=== PATIENT | female | born 1945 | race African-American/Black ===

== ENCOUNTER → 2017-12-14 | Day surgery (SDC) | payer OTHER, MEDICARE ==
[2017-12-13 12:32] LABS: BASOPHILS # (AUTO) 0.1 (0.0-0.1); BASOPHILS % 0.9 % (0.0-1.0); EOSINOPHILS # (AUTO) 0.1 (0.0-0.4); EOSINOPHILS % 0.9 % (0.0-6.0); HEMATOCRIT 34.5 % (34.2-44.1); HEMOGLOBIN 11.2 g/dL (12.0-16.0); LYMPHOCYTES # (AUTO) 2.3 (1.0-3.2); LYMPHOCYTES % 39.8 % (18.0-39.1); MEAN CORPUSCULAR HGB CONC 32.5 g/dL (31-35); MEAN CORPUSCULAR VOLUME 92.5 fL (81-99); MONOCYTES # (AUTO) 0.5 (0.2-0.8); MONOCYTES % 7.8 % (4.4-11.3); NEUTROPHILS % 50.3 % (38.7-80.0); PLATELET COUNT 194 x10e3/uL (140-360); RED BLOOD COUNT 3.73 x10e6/uL (3.6-5.1); RED CELL DISTRIBUTION WIDTH 14.6 % (11.7-14.4)
[2017-12-13 12:54] LABS: ANION GAP 11.8 mmol/L (8-16); CALCIUM 9.6 mg/dL (8.4-10.2); CREATININE, SERUM 1.76 mg/dL (0.57-1.11); POTASSIUM 4.8 mmol/L (3.5-5.1)
[~2017-12-14] MED LIST: ALBUTEROL0.63 MG/3; ASPIR 8181 MG PO; ASPIRIN325 MG PO; ATORVASTATIN CA20 MG PO; BUPIVACAINE HCL 0.5% INJ 30 ML VIAL INJ ONE; BYSTOLIC10 MG PO; CARBAMAZEPINE200 MG PO; CATAPRES-TTS 21 EACH PO; CEFAZOLIN SOD 2 GM/D5W 50ML 50 ML IV ONE; DEXAMETHASONE SOD PHOS INJ 4 MG/ML VIAL ONE; DIAZEPAM5 MG PO; FENTANYL CITRATE/PF 100MCG/2 ML INJ ONE; FUROSEMIDE40 MG PO; GABAPENTIN400 MG PO; HYDRALAZINE HCL25 MG PO; HYDROCODON-ACE1 EA11 PO; ISOSORBIDE MONO20 MG PO; LIDOCAINE HCL 1% LOCAL INJ 20 ML VIAL ONE; LIDOCAINE HCL 2% LOCAL INJ 5 ML SDV VIAL INJ ONE; LIDODERM700 MG TOP; LINZESS PO; LISINOPRIL10 MG PO; LISINOPRIL2.5 MG PO; MIDAZOLAM HCL 2 MG/2 ML VIAL ONE; ONDANSETRON HCL INJ 2 MG/ML VIAL ONE; OXYCODONE HCL20 M1 PO; PANTOPRAZOLE SO40 MG PO; POTASSIUM CHLO10 ME1 PO; PROPOFOL IV EMULSION 10 MG/ML 20 ML VIAL ONE; SEVOFLURANE INHAL SOLN 250 ML PEN BTL ONE; SYMBICORT 16010.2 GM INH; ULTRAM 50MG50 MG PO; VENTOLIN HFA18 GM INH; VITAMIN D1000 UNI1 PO; VOLTAREN100 GM TOP; XANAX2 MG PO; ZOFRAN ODT4 MG SL
--- OUTSIDE RECORDS SUMMARY | 2017-12-14 05:20 | XMS REPORT ---
[facility] Address Unknown Phone Unavailable Care Team Providers Care Photographers' Model Name Role Phone CELE SHINE Unavailable Unavailable HERMILA JOHN Unavailable Unavailable Problems This patient has no known problems. Allergies, Adverse Reactions, Alerts This patient has no known allergies or adverse reactions. Medications This patient has no known medications. Results Test Description Test Time Test Comments Text Results Atomic Results Result Comments CT BRAIN WO [place] [id number] [place] [id number] Patient Name: MARIN CRABTREE MR #: [id number] : 1945 Age/Sex: 71/F Req #: [id number] [facility] Physician: Ordered by: CELE SHINE MD Report #: [id number] Location: ER Room/Bed: Procedure: [id number] CT/CT BRAIN WO Exam Date: Exam Time: REPORT STATUS: Signed EXAMINATION: Head CT without contrast. HISTORY: Headache, hypertension. COMPARISON:CT brain from 10/13/2016 and MRI brain from 10/14/2016. TECHNIQUE: Multidetector axial images were obtained from the foramen magnum to the vertex without contrast. The images were reconstructed using brain and bone algorithms. Thin section brain images were reformatted into coronal and sagittal planes. Intravenous contrast: None IMAGE QUALITY: Suboptimal evaluation due to motion artifacts. FINDINGS: Skull/scalp: No abnormality Parenchyma: Nonspecific few, scattered supratentorial white matter patchy hypodensity are likely related to small vessel ischemic changes. No acute hemorrhage, mass or acute major vascular territorial infarct. Arteries: Atherosclerotic calcification in bilateral carotid siphon. Dural sinuses: No abnormal density suggestive of thrombosis. Ventricles: No hydrocephalus or displacement. Extra- axial spaces: No abnormal density. Brain volume: Normal for age. Craniocervical junction: No mass, Chiari malformation, or basilar invagination. Sella: Enlarged, CSF filled empty sella. Paranasal/ mastoid sinuses: Imaged portions unremarkable. IMPRESSION: No acute intracranial abnormality. Mild supratentorial white matter microvascular ischemic changes. Signed by: Dr. Katie Nova M.D. on 07/06/2017 10:00 PM Dictated By: KATIE NOVA MD 99 Transcribed By: SEBASTIAN on 07/06/172199 COPY TO: CELE SHINE MD CHEST SINGLE (PORTABLE) [place] [address] Patient Name: MARIN CRABTREE MR #: [id number] : 1945 Age/Sex: 71/F Req #: [id number] Adm Physician: Ordered by: CELE SHINE MD Report #: [id number] Location: ER Room/Bed: Procedure: [id number] DX/CHEST SINGLE (PORTABLE) Exam Date: 07/06/17 Exam Time: 2126 REPORT STATUS: Signed CHEST SINGLE ( PORTABLE), 07/06/2017 9:18 PM Technique: CHEST SINGLE (PORTABLE) Comparison: 03/06/2017 Clinical history: Headache, hypertension Findings: See Impression Impression: 1. Stable cardiomegaly and prominent aortic contour status post sternotomy allowing for differences in technique. 2. No edema or consolidation. No pleural effusion or pneumothorax. Signed by: Dr Haritha Allen MD on 07/06/2017 10:22 PM Dictated By: HARITHA ALLEN MD 21 Transcribed By: SEBASTIAN on 07/06/172221 COPY TO: CELE SHINE MD CT ABDOMEN/PELVIS WO [place] [address] Patient Name: MARIN CRABTREE MR #: [id number] : 1945 Age/Sex: 71/F Req # : [id number] Adm Physician: Ordered by: MARTIN CASEY Report #: [id number] Location: ER Room/Bed: Procedure: [id number] CT/CT ABDOMEN/PELVIS WO Exam Date: 04/12/17 Exam Time: 1110 REPORT STATUS: Signed PROCEDURE: CT ABDOMEN AND PELVIS WITHOUT CONTRAST TECHNIQUE: The abdomen and pelvis were scanned utilizing a multidetector helical scanner from the diaphragm to the lesser trochanter. No oral or intravenous contrast was administered per renal stone protocol. Coronal and sagittal multiplanar reformations were obtained. COMPARISON: 03/06/2017. INDICATIONS: LEFT SIDE ABDOMEN PAIN FINDINGS: ABSENCE OF INTRAVENOUS CONTRAST DECREASES SENSITIVITY FOR DETECTION OF FOCAL LESIONS AND VASCULAR PATHOLOGY. LOWER THORAX: Normal. HEPATOBILIARY: No focal hepatic lesion or intrahepatic biliary ductal dilatation. The gallbladder has been removed. SPLEEN: No splenomegaly. PANCREAS: No focal masses or ductal dilatation. ADRENALS: Large left adrenal nodule with average internal attenuation -10 Hounsfield units, unchanged and compatible with lipid rich adenoma. Similar, though smaller right adrenal nodule. KIDNEYS/URETERS: Subcentimeter hyperattenuating lesions within both kidneys are too small to further characterize though likely to represent hemorrhagic or proteinaceous cysts for example on series 3 image 54 and 68. No hydronephrosis. No calculi. PELVIC ORGANS/BLADDER: No adnexal mass. The uterus has been removed. The urinary bladder is poorly distended and suboptimally evaluated. PERITONEUM / RETROPERITONEUM: No ascites. No pneumoperitoneum. LYMPH NODES: No pelvic sidewall, retroperitoneal , or mesenteric lymphadenopathy. VESSELS: Limited evaluation without intravenous contrast. The abdominal aorta is non-aneurysmal. Atherosclerotic calcification throughout the aortoiliac system. GI TRACT: Innumerable sigmoid and descending colon diverticula without wall thickening or adjacent inflammatory change. The appendix is not identified. No right lower quadrant inflammatory change. Prominence of the gastric rugal folds is likely a consequence of under distention. No small bowel dilatation to suggest obstruction. A few diverticula along the distal ileum without adjacent inflammatory change. BONES AND SOFT TISSUES: Postsurgical changes along the low anterior abdominal wall, unchanged. Otherwise, no focal soft tissue abnormalities. No acute osseous abnormalities. Degenerative disc disease and degenerative facet arthropathy of the lower lumbar spine IMPRESSION: No acute intra-abdominal or pelvic CT abnormalities. Large bowel diverticulosis without evidence of diverticulitis. Atherosclerotic vascular disease. Bilateral lipid rich adrenal adenomas. Dictated by: Brock Ramírez M.D. on 04/12/2017 at 12:10 Electronically approved by: Brock Ramírez M.D. on 04/12/2017 at 12:10 Dictated By: BROCK RAMÍREZ MD 1210 Transcribed By: MOMO on 04/12/17 1210 COPY TO: MARTIN CASEY
--- NOTE | 2017-12-14 08:08 | Operative Report ---
DATE OF PROCEDURE: December 14, 2017 PREOPERATIVE DIAGNOSIS: Right axillary mass. POSTOPERATIVE DIAGNOSIS: Right axillary mass. PROCEDURE: Excision of right axillary mass with layered closure. DESKTOP SUPPORT MANAGER: None. ANESTHESIA: General. INDICATIONS AND FINDINGS: Patient is a 72-year-old female who complains of a mass in the right axilla. Exam revealed probable mass that was about 8 cm in diameter and appeared to be accessory breast tissue. At surgery, the patient was found to have accessory breast tissue in the subcutaneous tissue, which was completely excised. TECHNIQUE: After adequate general endotracheal anesthesia and with the patient in the supine position, the right axilla was prepped and draped in a sterile fashion with Patricio solution. An elliptical incision made over the mass and carried into the subcutaneous tissue. The mass was completely excised from the surrounding tissues and extended into the axilla. It grossly appeared to be accessory breast tissue. Hemostasis achieved with electrocautery. The wound was irrigated with saline and inspected for hemostasis, which was seen to be adequate. A 10 mm flat Waylon-Ferrer drain was placed in the wound through a separate stab wound incision. The wound infiltrated with 0.5% Marcaine. The wound was then closed in layers with 3-0 Vicryl on the subcutaneous tissue and bharat for the skin. Sterile dressing was applied. The patient tolerated the procedure well. Estimated blood loss was 5 mL. There were no complications. All counts were correct. Patient was taken to the recovery room in satisfactory condition. Job#: [id number] SUSAN
== END | disposition home or self-care (01) ==
LOC: OR 05:19
PROVIDERS: ATTEND Surgery
DX: R22.31 Localized swelling, mass and lump, right upper limb (principal); N64.59 Other signs and symptoms in breast; Z88.5 Allergy status to narcotic agent; M41.9 Scoliosis, unspecified; K21.9 Gastro-esophageal reflux disease without esophagitis; J44.9 Chronic obstructive pulmonary disease, unspecified; I25.810 Atherosclerosis of coronary artery bypass graft(s) without angina pectoris; I13.0 Hypertensive heart and chronic kidney disease with heart failure and stage 1 through stage 4 chronic kidney disease, or unspecified chronic kidney disease; N18.9 Chronic kidney disease, unspecified; I50.9 Heart failure, unspecified; F17.210 Nicotine dependence, cigarettes, uncomplicated; Z01.812 Encounter for preprocedural laboratory examination; Z79.82 Long term (current) use of aspirin; Z95.1 Presence of aortocoronary bypass graft
CPT/HCPCS: 11404; 12032; 36415; 80048; 85025; 88305; J1100; J2001; J2250; J2405; 88304

== ENCOUNTER 2018-02-27 18:16 | Emergency (ER) | payer OTHER, MEDICARE ==
[~2018-02-27] VITALS: Ht 165.1 cm; Wt 84.8 kg
[~2018-02-27 18:16] MED LIST changes: -BUPIVACAINE HCL 0.5% INJ 30 ML VIAL INJ ONE; -CEFAZOLIN SOD 2 GM/D5W 50ML 50 ML IV ONE; -DEXAMETHASONE SOD PHOS INJ 4 MG/ML VIAL ONE; -FENTANYL CITRATE/PF 100MCG/2 ML INJ ONE; -LIDOCAINE HCL 1% LOCAL INJ 20 ML VIAL ONE; -LIDOCAINE HCL 2% LOCAL INJ 5 ML SDV VIAL INJ ONE; -MIDAZOLAM HCL 2 MG/2 ML VIAL ONE; -ONDANSETRON HCL INJ 2 MG/ML VIAL ONE; -PROPOFOL IV EMULSION 10 MG/ML 20 ML VIAL ONE; -SEVOFLURANE INHAL SOLN 250 ML PEN BTL ONE
[2018-02-27] MEDS ORDERED: DIATRIZOATE MEGL/DIATRIZOA SOD 30 ML BTL PO ONE (18:50)
[2018-02-27 19:02] LABS: BASOPHILS # (AUTO) 0.1 (0.0-0.1); BASOPHILS % 0.7 % (0.0-1.0); EOSINOPHILS # (AUTO) 0.1 (0.0-0.4); EOSINOPHILS % 1.1 % (0.0-6.0); HEMOGLOBIN 11.4 g/dL (12.0-16.0); LYMPHOCYTES # (AUTO) 3.1 (1.0-3.2); MEAN CORPUSCULAR HEMOGLOBIN 29.4 pg (28-32); MEAN CORPUSCULAR HGB CONC 32.6 g/dL (31-35); MEAN CORPUSCULAR VOLUME 90.2 fL (81-99); MONOCYTES # (AUTO) 0.4 (0.2-0.8); MONOCYTES % 5.9 % (4.4-11.3); NEUTROPHILS # (AUTO) 3.7 (2.1-6.9); NEUTROPHILS % 50.2 % (38.7-80.0); PLATELET COUNT 221 x10e3/uL (140-360); RED BLOOD COUNT 3.88 x10e6/uL (3.6-5.1); RED CELL DISTRIBUTION WIDTH 15.3 % (11.7-14.4)
[2018-02-27 19:06] LABS: CLARITY,URINE CLEAR (CLEAR); COLOR,URINE YELLOW (YELLOW)
[2018-02-27 19:07] LABS: KETONES,URINE NEGATIVE (NEGATIVE); LEUKOCYTE ESTERASE ,URINE NEGATIVE (NEGATIVE); NITRITE,URINE NEGATIVE (NEGATIVE); PROTEIN,URINE DIPSTICK NEGATIVE (NEGATIVE)
[2018-02-27 19:08] LABS: BILIRUBIN,URINE NEGATIVE (NEGATIVE); URINE UROBILINOGEN 0.2 mg/dL (0.2 - 1)
[2018-02-27 19:09] LABS: BACTERIA,URINE RARE /HPF; EPITHELIAL CELLS,URINE FEW /LPF; HYALINE CASTS 0-1 (0-1); RBC,URINE 0-5 /HPF (0-5); WBC,URINE (MAN) 0-5 /HPF (0-5)
[2018-02-27 19:10] LABS: INR 1.06
[2018-02-27 19:11] LABS: PARTIAL THROMBOPLASTIN TIME 29.9 seconds (23.8-35.5)
[2018-02-27 19:22] LABS: ALBUMIN 3.7 g/dL (3.5-5.0); ANION GAP 13.5 mmol/L (8-16); CALCIUM 9.6 mg/dL (8.4-10.2); CREATININE, SERUM 1.59 mg/dL (0.57-1.11); MAGNESIUM 1.8 MG/DL (1.3-2.1); POTASSIUM 3.5 mmol/L (3.5-5.1)
[2018-02-27 19:28] LABS: CREATINE KINASE MB 2.1 ng/mL (0-5.0)
--- NOTE | 2018-02-27 19:29 | Diagnostic Imaging Report ---
EXAM: CHEST SINGLE (PORTABLE), AP 1 view INDICATION: Abdominal pain, bloating COMPARISON: AP view of the chest July 06, 2017 FINDINGS: LINES/TUBES: None LUNGS: No consolidations or edema. PLEURA: No effusions or pneumothorax. HEART AND MEDIASTINUM: Normal size and contour. Stable median sternotomy wires. BONES AND SOFT TISSUES: No acute findings. IMPRESSION: No acute thoracic abnormality. Signed by: Dr. Eva Willson M.D. on 02/27/2018 7:26 PM
--- NOTE | 2018-02-27 20:52 | Diagnostic Imaging Report ---
EXAM: CT ABDOMEN AND PELVIS without IV CONTRAST INDICATION: Abdominal pain, bloating, shortness of breath COMPARISON: CT of the abdomen and pelvis March 06, 2017 TECHNIQUE: The abdomen and pelvis were scanned using a multidetector helical scanner. Coronal and sagittal reformations were obtained. Routine protocol performed. IV Contrast: None Oral Contrast: Gastrografin CTDIvol has been reviewed. It is below the limits set by the Radiation Protocol Committee (RPC). FINDINGS: LOWER THORAX: No consolidations LIVER: No masses BILIARY: Cholecystectomy without ductal dilation. SPLEEN: No masses PANCREAS: No masses ADRENALS: Stable 5 cm x 1.8 cm left adrenal gland adenoma. Stable mild thickening of the right adrenal gland. RIGHT KIDNEY: No nephroureterolithiasis or hydronephrosis. LEFT KIDNEY: No nephroureterolithiasis or hydronephrosis. GI TRACT: No wall thickening or obstruction. Sigmoid colon diverticulosis. The appendix is not identified. No inflammatory changes in the right lower quadrant of the abdomen to suspect acute appendicitis VESSELS: Mild atherosclerotic changes of the abdominal aorta without aneurysm. PERITONEUM/RETROPERITONEUM: No free air or fluid LYMPH NODES: No lymphadenopathy REPRODUCTIVE ORGANS: The uterus and ovaries are not visualized. BLADDER: Normal SOFT TISSUES: Normal BONES: No suspicious bone lesions. IMPRESSION: Marked sigmoid colon diverticulosis without CT findings of acute diverticulitis. No bowel obstruction. Signed by: Dr. Eva Willson M.D. on 02/27/2018 8:49 PM
[2018-02-27 21:37] VITALS: BP 165/117
== END 2018-02-27 21:45 | disposition home or self-care (01) ==
LOC: ER 18:16
DX: R10.84 Generalized abdominal pain (principal); R11.0 Nausea; K57.31 Diverticulosis of large intestine without perforation or abscess with bleeding; I10 Essential (primary) hypertension; E78.5 Hyperlipidemia, unspecified; I50.9 Heart failure, unspecified; G50.0 Trigeminal neuralgia; Z95.1 Presence of aortocoronary bypass graft
CPT/HCPCS: 36415; 71045; 74176; 80053; 81001; 82150; 82550; 82553; 83690; 83735; 83880; 84484; 85025; 85610; 85730; 93005; 99284

== ENCOUNTER → 2018-06-01 | Outpatient (CLI) | payer OTHER, MEDICARE ==
--- NOTE | 2018-06-01 12:44 | Diagnostic Imaging Report ---
EXAM: CT Chest WITHOUT contrast INDICATION: COPD/bronchitis COMPARISON: None. TECHNIQUE: The Chest was scanned utilizing a multidetector helical scanner without the use of IV contrast. Coronal and sagittal reformations were obtained. Reformatted axial MIP images were obtained and reviewed. IV CONTRAST: None COMPLICATIONS: None RADIATION DOSE: Total DLP: 258 mGy*cm Estimated effective dose: (DLP x 0.015 x size factor) mSv CTDIvol has been reviewed. It is below the limits set by the Radiation Protocol Committee (RPC). Appropriate CT dose reduction techniques were utilized. FINDINGS: Lines and Tubes: None. Lower Neck: 13 mm nodule left thyroid lobe. Heart and Great Vessels: The aorta and main pulmonary artery measure 42 and 33 mm. respectively. No pericardial effusion. Mild to moderate aortic and coronary artery vascular calcifications. Lymph Nodes: Scattered small mediastinal lymph nodes, not distinctly enlarged by size criteria. The hilar regions are sub-optimally evaluated given lack of IV contrast. Lungs: Mild biapical scarring. There is a diverticulum of the trachea posterior laterally on the right near the cervicothoracic junction. No pneumothorax or pleural effusion is present. The trachea and central bronchi are otherwise unremarkable. There is mild septal thickening in the lung bases. Atelectasis in the right middle lobe and lingula noted. Minimal groundglass opacities in the lung bases are present. There are a few tiny 1 to 2 mm pleural and parenchymal nodules, of doubtful clinical significance. Upper abdomen: Cholecystectomy clips. Left adrenal adenoma measuring 49 x 21 mm. Bones and Soft Tissues: Sternotomy wires. IMPRESSION: 1. Minimal septal thickening and groundglass opacities in the lung bases can be seen in the setting of minimal edema, with infectious or inflammatory processes not excluded. 2. Left adrenal adenoma. 3. Left thyroid nodule. Dedicated ultrasound recommended. 4. 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 Signed by: Dr. Yosvany Galaviz MD on 06/01/2018 12:40 PM
== END ==
LOC: CT 10:38
PROVIDERS: ATTEND Internal Medicine Critical Care Medicine
DX: R91.1 Solitary pulmonary nodule (principal)
CPT/HCPCS: 71250

== ENCOUNTER 2018-09-10 18:54 | Emergency (ER) | payer MEDICARE ==
[~2018-09-10] VITALS: Ht 165.1 cm; Wt 94.3 kg
[2018-09-10] MEDS ORDERED: CLONIDINE HCL 0.2 MG TAB PO ONE (20:00)
[2018-09-10] MEDS ORDERED: METHYLPREDNISOLONE SOD SUCC 125 MG/2ML VIAL IV ONE (20:00)
--- NOTE | 2018-09-10 20:19 | Diagnostic Imaging Report ---
Exams: Head and maxillofacial CTs without IV contrast History: Left facial pain, prior trigeminal neuralgia surgery, hypertension, EKG. Comparison studies: Head CT 07/06/2017. Technique: Axial images were obtained to the vertex and maxillofacial region. Coronal and sagittal images reconstructed from the axial data. Dose modulation, iterative reconstruction, and/or weight based adjustment of the mA/kV was utilized to reduce the radiation dose to as low as reasonably achievable. Intravenous contrast: None Findings: Scalp: No abnormalities. Bones: No fractures, blastic or lytic lesions. Brain sulci: Appropriate for age. Ventricles: Normal in size and configuration. No hydrocephalus. Parenchyma: No mass, acute hemorrhage or acute or chronic cortical vascular insults. A few scattered hypodensities in the supratentorial white matter are nonspecific but most compatible with chronic microvascular ischemic changes. Sellar/suprasellar region: Mildly expanded mostly CSF filled sella ("empty sella"), a nonspecific finding. Is mild optic nerve tortuosity as well as probably mild increased CSF within the optic nerve sheaths. Compilation of findings can be seen in patients with idiopathic intracranial hypertension in the proper clinical setting. Craniocervical junction: Patent foramen magnum. No Chiari one malformation. Maxillofacial CT: Soft tissues: No abnormalities. Bones: No fractures or bony abnormalities. Orbits: Mild vertical tortuosity of the optic nerves as well as possible mild increased CSF within the optic nerve sheath as described. No other abnormalities. Paranasal sinuses: Right sphenoid sinus is partially opacified with mucosal thickening and layering fluid/secretions. Remaining sinuses are clear. Included cervical spine: Cervical kyphotic curvature with varying degrees of mild to moderate disc degeneration from C2 to C6. Disc osteophyte complexes from C3 to C6 indent the thecal sac. Moderate foraminal stenosis bilaterally at C3-C4 C4-C5 and at C5-C6 due to uncovertebral arthrosis. Incidental findings: * Intracranial and extracranial bilateral carotid artery calcified atherosclerosis.. * Possible 1.6 cm hypodense nodule or cyst in the left thyroid gland. * Torus palatinus. * Degenerative changes at the right temporal mandibular joint with right mandibular condyle subcondylar cyst formation. IMPRESSION: Head CT: 1. No acute intracranial abnormalities. 2. Mild chronic microvascular ischemic changes. 3. Unchanged empty sella with additional ancillary findings which can be seen with idiopathic intracranial hypertension in the appropriate clinical setting. Moreover, this diagnosis would be somewhat unusual in a patient of this age. Findings can be correlated clinically. Maxillofacial CT: 1. Right sphenoid sinusitis. 2. No other acute intracranial abnormalities. Signed by: Dr. Ankush Dale M.D. on 09/10/2018 8:16 PM
[2018-09-10 20:27] LABS: BASOPHILS % 0.5 % (0.0-1.0); EOSINOPHILS # (AUTO) 0.1 (0.0-0.4); EOSINOPHILS % 0.9 % (0.0-6.0); HEMATOCRIT 36.5 % (34.2-44.1); HEMOGLOBIN 11.8 g/dL (12.0-16.0); LYMPHOCYTES # (AUTO) 1.8 (1.0-3.2); LYMPHOCYTES % 28.7 % (18.0-39.1); MEAN CORPUSCULAR HEMOGLOBIN 29.9 pg (28-32); MEAN CORPUSCULAR HGB CONC 32.3 g/dL (31-35); MEAN CORPUSCULAR VOLUME 92.4 fL (81-99); MONOCYTES # (AUTO) 0.4 (0.2-0.8); MONOCYTES % 5.8 % (4.4-11.3); NEUTROPHILS # (AUTO) 4.1 (2.1-6.9); NEUTROPHILS % 63.6 % (38.7-80.0); PLATELET COUNT 213 x10e3/uL (140-360); RED BLOOD COUNT 3.95 x10e6/uL (3.6-5.1); RED CELL DISTRIBUTION WIDTH 15.4 % (11.7-14.4)
[2018-09-10 20:46] LABS: ALBUMIN 3.6 g/dL (3.5-5.0); ALBUMIN/GLOBULIN RATIO 0.9 (0.8-2.0); ANION GAP 16.3 mmol/L (8-16); CALCIUM 9.2 mg/dL (8.4-10.2); CREATININE, SERUM 1.37 mg/dL (0.57-1.11); POTASSIUM 4.3 mmol/L (3.5-5.1)
[2018-09-10] MEDS ORDERED: HYDRALAZINE HCL 20 MG/ML VIAL IV PRN (21:45)
[2018-09-10] MEDS ORDERED: DIAZEPAM 5 MG TAB PO ONE (21:45)
[2018-09-10] MEDS ORDERED: HYDRALAZINE HCL 20 MG/ML VIAL IV STA (23:37)
[2018-09-11 00:29] VITALS: BP 163/72
== END 2018-09-11 00:56 | disposition home or self-care (01) ==
LOC: ER 18:54
DX: I10 Essential (primary) hypertension (principal); G50.0 Trigeminal neuralgia; J01.30 Acute sphenoidal sinusitis, unspecified; J44.9 Chronic obstructive pulmonary disease, unspecified; E78.5 Hyperlipidemia, unspecified; Z95.1 Presence of aortocoronary bypass graft
CPT/HCPCS: 36415; 70450; 70486; 80053; 85025; 99284; J0360; J2930

== ENCOUNTER 2018-09-16 10:27 | Emergency (ER) | payer MEDICARE ==
[~2018-09-16] VITALS: Ht 165.1 cm; Wt 94.3 kg
[2018-09-16] MEDS ORDERED: KETOROLAC TROMETHAMINE 30 MG/ML VIAL IV STA (10:43)
[2018-09-16] MEDS ORDERED: SODIUM CHLORIDE 0.9% 1000ML 1,000 ML IV STA (10:43)
[2018-09-16] MEDS ORDERED: DEXAMETHASONE SOD PHOS 10 MG/1 ML VIAL IV ONE (10:45)
[2018-09-16] MEDS ORDERED: BUPIVACAINE HC 0.75% PF 10ML VIAL INJ ONE ×2 (10:45→11:00)
[2018-09-16] MEDS ORDERED: HYDRALAZINE HCL 20 MG/ML VIAL IV ONE ×2 (10:45→14:00)
[2018-09-16 11:26] LABS: BASOPHILS % 0.6 % (0.0-1.0); EOSINOPHILS % 0.4 % (0.0-6.0); HEMATOCRIT 36.4 % (34.2-44.1); HEMOGLOBIN 11.9 g/dL (12.0-16.0); LYMPHOCYTES # (AUTO) 2.4 (1.0-3.2); LYMPHOCYTES % 33.4 % (18.0-39.1); MEAN CORPUSCULAR HEMOGLOBIN 30.3 pg (28-32); MEAN CORPUSCULAR HGB CONC 32.7 g/dL (31-35); MEAN CORPUSCULAR VOLUME 92.6 fL (81-99); MONOCYTES # (AUTO) 0.6 (0.2-0.8); MONOCYTES % 8.1 % (4.4-11.3); NEUTROPHILS # (AUTO) 4.1 (2.1-6.9); NEUTROPHILS % 57.1 % (38.7-80.0); PLATELET COUNT 215 x10e3/uL (140-360); RED BLOOD COUNT 3.93 x10e6/uL (3.6-5.1); RED CELL DISTRIBUTION WIDTH 14.9 % (11.7-14.4)
[2018-09-16] MEDS ORDERED: ENALAPRILAT IV INJ 1.25 MG/ML VIAL IV STA (11:44)
[2018-09-16 11:47] LABS: ANION GAP 11.7 mmol/L (8-16); CALCIUM 9.1 mg/dL (8.4-10.2); CREATININE, SERUM 1.3 mg/dL (0.57-1.11); POTASSIUM 3.7 mmol/L (3.5-5.1)
[2018-09-16] MEDS ORDERED: ENALAPRILAT IV INJ 1.25 MG/ML VIAL ONE (11:51)
[2018-09-16] MEDS ORDERED: CLONIDINE HCL 0.1 MG TAB PO ONE (12:30)
[2018-09-16] MEDS ORDERED: CLONIDINE HCL 0.3 MG TAB PO NR (12:45)
[2018-09-16] MEDS ORDERED: CLONIDINE HCL 0.3 MG TAB PO ONE (13:00)
[2018-09-16] MEDS ORDERED: MORPHINE SULFATE INJ 4 MG/ML INJ 1ML IV NR (13:00)
[2018-09-16] MEDS ORDERED: MORPHINE SULFATE 5 MG/ML VIAL IV ONE (13:00)
[2018-09-16 14:17] VITALS: BP 189/98
== END 2018-09-16 14:34 | disposition home or self-care (01) ==
LOC: ER 10:27
DX: G50.0 Trigeminal neuralgia (principal); I10 Essential (primary) hypertension; J44.9 Chronic obstructive pulmonary disease, unspecified; Z95.1 Presence of aortocoronary bypass graft
CPT/HCPCS: 36415; 80048; 85025; 93005; 99284; J0360; J1100; J1885; J2270; J7030

== ENCOUNTER 2019-05-01 15:05 | Emergency (ER) | payer OTHER, MEDICARE ==
[~2019-05-01] VITALS: Ht 165.1 cm; Wt 94.3 kg
[2019-05-01] MEDS ORDERED: SODIUM CHLORIDE 0.9% 1000ML 1,000 ML IV STA (15:06)
--- OUTSIDE RECORDS SUMMARY | 2019-05-01 15:07 | XMS REPORT | Continuity of Care Document ---
Author Author [facility] [employer] Organization [facility] [employer] Address Unknown Phone Unavailable Care Team Providers Care Entry Level Software Developer Name Role Phone [facility] [employer] Information valuescope Unavailable Unavailable Problems Problem Status Onset Date Classification Date Reported Comments Source DX: ROUTINE MAMMO, M81.0=AGE-RELATED OST Active 02/27/2019 [facility] R09.89 - OTH SYMPTOMS AND SIGNS INVOLVI Active 10/19/2018 [facility] Pain in left knee 03/25/2018 10/05/2018 [facility] M25.562 - PAIN IN LEFT KNEE Active 03/16/2018 [facility] Medications No Data Provided for This Section Allergies, Adverse Reactions, Alerts No Known Medication Allergies Immunizations No Data Provided for This Section Results No Data Provided for This Section Pathology Reports No Data Provided for This Section Diagnostic Reports Report Value Date Source Breast Mammo Scrn POLY incl CAD MA BILATERAL DIGITAL SCREENING MAMMOGRAM WITH CAD: 03/17/2019 CLINICAL: /Routine. Current study was evaluated with a Computer Aided Detection (CAD) system. COMPARISON:Comparison is made to exam dated: 06/29/2017 mammogram. TECHNIQUE: Mammographic views were obtained using digital acquisition. [employer] Version 1.3 was utilized for computer aided detection. FINDINGS: There are scattered fibroglandular densities in both breasts. There are benign calcifications in both breasts. No significant masses, calcifications, or other findings are seen in either breast. There has been no significant interval change. IMPRESSION: BENIGN RECOMMENDATION:There is no mammographic evidence of malignancy. A 1 year screening mammogram is recommended.(03/17/2020) This exam was interpreted at [id number] for [facility] Breast [place]. Fannie Magaña M.D. ap/penrad:03/30/2019 08:50:13 Information Strategist(s): Gracie Terrazas [facility] letter sent: BI-RADS 1/2 Mammogram BI-RADS: 2 Benign 03/17/2019 [facility] Thyroid US Exam: Thyroid US Clinical Indication: - left thyroid nodule. Comparison: None. TECHNIQUE: Multiplanar grayscale and color Doppler ultrasound of the neck were obtained in the area of the thyroid. FINDINGS: Thyroid parenchyma: Background thyroid parenchyma echogenicity appears within normal limits. Size: Right thyroid: 5.2 x 1.5 x 1.7 cm Left thyroid: 5.1 x 1.6 x 1.3 cm Isthmus thickness: 0.3 cm Thyroid nodules: There are 2 nodules identified as described below. Nodule 1: Location: Mid posterior right lobe Size: 1.0 x 1.0 x 1.0 cm Composition: Solid or almost completely solid (2 points). Echogenicity: Isoechoic (1 point). Shape: Wider than tall (0 points). Margins: Ill-defined (0 points). Echogenic foci: Absent (0 points). Other: None. ACR TI-RADS Score: TR3 - Mildly suspicious (total 3 points). -- ACR recommendation:=2.5 cm FNA;=1.5 cm f/u in 1, 3, and 5 years; <1.5 cm no f/u or FNA. Recommendations: None. Nodule 2: Location: Mid left lobe Size: 1.2 x 0.6 x 0.9 cm Composition: Mixed cystic and solid (1 point). Echogenicity: Hypoechoic (2 points). Shape: Wider than tall (0 points). Margins: Ill-defined (0 points). Echogenic foci: Absent (0 points). Other: None. ACR TI-RADS Score: TR3 - Mildly suspicious (total 3 points). -- ACR recommendation:=2.5 cm FNA;=1.5 cm f/u in 1, 3, and 5 years; <1.5 cm no f/u or FNA. Recommendations: None. Cervical lymph nodes: Normal. IMPRESSION: 1. Bilateral thyroid nodules, as detailed above, none of which meet MILTON criteria for FNA or follow-up. REFERENCE: Bokoshe BR et al. 2015 [place] Thyroid [employer] Management Guidelines for Adult Patients with Thyroid Nodules and Differentiated Thyroid Cancer. Thyroid. 2016; 26(1):1-133. SL: [id number] 03/17/2019 [facility] Bone Density Scan Patient Name: MARIN CRABTREE : 1945; Age: 73 years y/o Female MR: [id number] Study: Bone Density Scan 03/17/2019 8:59 CDT Clinical Indication: - M81.0 Age-related osteoporosis without current pathological fracture. COMPARISON: None FINDINGS: The axial lumbar bone mineral density is 138% of the expected age matched bone mass with a T-score 4.0. Axial lumbar average BMD is 1.59 g/cm2. The left femoral neck bone mineral density is 105% of the expected age matched bone mass with a T-score of 0.3. Left femoral neck BMD is 1.0 g/cm2. The total femoral BMD is 1.16 g/cm2. IMPRESSION: 1. Normal bone mineral density of the lumbar spine. 2. Normal bone mineral density of the left femoral neck. The World Health Organization has established that OSTEOPOROSIS occurs at -2.5 or more standard deviations (SD) below peak bone mass. OSTEOPENIA (low bone mass) occurs at -1.0 standard deviations to -2.5 standard deviations below peak bone mass. SL: [id number] 03/17/2019 [facility] Carotid artery Doppler bilat US EXAM: US EXTRACRANIAL ARTERIAL DOPPLER DATE: 10/25/2018 10:47 HUMAN RESOURCES RECRUITER INDICATION: - R09.89 Other specified symptoms and signs involving the circulatory and respiratory systems ADDITIONAL INFORMATION: None. COMPARISON: None. TECHNIQUE: Multiplanar grayscale, color Doppler and spectral Doppler ultrasound of the carotid and vertebral arteries. DISCUSSION: Right Carotid System: * Moderate hypoechoic atherosclerotic plaque is seen in the distal right common carotid artery and carotid bulb. * Peak systolic velocity in the right common carotid artery is 74cm/s. * Peak systolic velocity in the right internal carotid artery is 88cm/s in thedistal segment. * ICA/CCA ratio is 1.2. * Antegrade flow in the right vertebral and external carotid arteries. Left Carotid System: * Moderate hypoechoic atherosclerotic plaque is seen in the mid and distal segments of the left common carotid artery. * Peak systolic velocity left common carotid artery is 83cm/s. * Peak systolic velocity in the left internal carotid artery is 70cm/s in themid segment. * ICA/CCA ratio is 1.5. * Antegrade flow in the left vertebral and external carotid arteries. Other:Incidental 1.7 cm left inferior pole solid and cystic thyroid nodule. IMPRESSION: 1. No evidence of hemodynamically significant stenosis. Moderate hypoechoic or soft plaque seen in the bilateral distal common carotid arteries. 2. Vertebral arteries demonstrate antegrade flow with normal waveforms. 3. Incidental 1.7 cm left inferior pole solid and cystic thyroid nodule. Recommend further evaluation with dedicated thyroid ultrasound. According to the 2003 consensus criteria: <50% stenosis: PSV <125 cm/sec, EDV <40cm/sec, ICA:CCA ratio <2 50-69% stenosis: PSV 125-230cm/sec, EDV 40-100cm/sec, ICA:CCA ratio 2-4 >70% stenosis: PSV >230cm/sec, EDV >100cm/sec, ICA:CCA ratio >4 Reference: Radiology. 2003 229:340-346. Carotid Artery Stenosis: Wolf-scale and Doppler US diagnosis- Society of Radiologists in Ultrasound Consensus Conference. Evaristo EG, Orlando CB, Saundra GL, et. al. 10/25/2018 [facility] Knee 3 views DX CLINICAL HISTORY : , - lt knee pain EXAM : 3 views of the left knee 03/18/2018 10:51 AM CDT COMPARISON : none FINDINGS : Lucency lateral aspects of the lateral tibial plateau possibly due to a subacute nondisplaced fracture. There is no focal soft tissue swelling. There is no joint effusion. There is moderate tricompartmental degenerative changes including endplate sclerosis in the lateral tibial femoral compartment and marginal osteophytes, especially superior patellofemoral and lateral compartment. Subdermal calcifications or metallic shrapnel and surgical clips overlie the medial tibial plateau. Bone appears osteopenic. The bony alignment is normal. IMPRESSION: Possible acute to subacute nondisplaced fracture involving the lateral aspect of the lateral tibial plateau. 03/18/2018 [facility] Consultation Notes No Data Provided for This Section Discharge Summaries No Data Provided for This Section History and Physicals No Data Provided for This Section Vital Signs No Data Provided for This Section Encounters Location Location Details Encounter Type Encounter Number Reason For Visit Attending Provider ADM Date DC Date Status Source [facility] Outpatient Imaging [facility] Di[facility] Services [id number] Ankush Gallardo 03/18/2018 03/19/2018 [facility] Outpatient Imaging [facility] Diag Services [id number] Anksuh Gallardo 10/25/2018 10/26/2018 [facility] Outpatient [id number] Ankush Gallardo 03/17/2019 03/18/2019 [facility] Procedures No Data Provided for This Section Assessment and Plan No Data Provided for This Section Plan of Care No Data Provided for This Section Social History Social History Date Source No data available for this section 03/18/2019 [facility] No data available for this section 10/26/2018 [facility] No data available for this section 03/19/2018 [facility] Family History No Data Provided for This Section Advance Directives No Data Provided for This Section Functional Status No Data Provided for This Section
--- OUTSIDE RECORDS SUMMARY | 2019-05-01 15:07 | XMS REPORT | Summary of Care ---
Author Author [facility] Outpatient Imaging [facility] Outpatient [facility] Address Unknown Phone Unavailable Encounter HQ Encntr_aliamanda(FIN) [id number] Date(s): 10/25/18 - 10/25/18 [facility] Outpatient Imaging [facility] [address] [address], [address] [place], [place] [address] [phone] Discharge Disposition: Home or Self Care Attending Physician: Ankush Gallardo DO Referring Physician: Ankuhs Gallardo DO Vital Signs No data available for this section Problem List No data available for this section Allergies, Adverse Reactions, Alerts No data available for this section Medications No data available for this section Results No data available for this section Immunizations No data available for this section Procedures No data available for this section Social History No data available for this section Assessment and Plan No data available for this section
--- OUTSIDE RECORDS SUMMARY | 2019-05-01 15:07 | XMS REPORT | Summary of Care ---
Author Author SKY DERAS M.D. Organization Unknown Address [facility] Phone Unavailable Care Team Providers Care Winding Machine Operator Name Role Phone SKY DERAS M.D. 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 Chronic GERD (530.81, K21.9) Status: Active Nasal congestion (478.19, R09.81) Status: Active Medications Name Dates Details Fluticasone Propionate 50 MCG/ACT Nasal Suspension Active carBAMazepine 200 MG Oral Tablet * Refills: 0 Active Lisinopril TABS * Refills: 0 Active Pantoprazole Sodium 40 MG Oral Tablet Delayed Release * Refills: 0 Active diazePAM 10 MG Rectal Gel * Refills: 0 Active cloNIDine HCl TABS * Refills: 0 Active Aspirin 81 MG TABS * Refills: 0 Active Azithromycin 250 MG Oral Tablet * Refills: 0 Active Furosemide 40 MG Oral Tablet * Refills: 0 Active traMADol HCl TABS * Refills: 0 Active Dymista 137-50 MCG/ACT Nasal Suspension 2 sprays each nostril daily. * Quantity: 1 Refills: 6 SKY DERAS M.D. * Start : 28-Apr-2019 Active 23 GM Bottle Allergies and Adverse Reactions Name Dates Details codeine (Allergy) Status: Active Past Medical History Name Dates Details History of arthritis (V13.4, Z87.39) Status: Resolved History of cardiac disorder (V12.50, Z86.79) Status: Resolved History of chronic obstructive lung disease (V12.69, Z87.09) Status: Resolved History of gastritis (V12.79, Z87.19) Status: Resolved History of high blood pressure (V12.59, Z86.79) Status: Resolved History of kidney disease (V13.09, Z87.448) Status: Resolved Procedures Procedure Dates Details Procedures not documented Immunization Name Dates Details Immunizations not documented Family History Name Dates Details Family history of allergies (V19.6, Z84.89) Status: Active Family history of heart disease (V17.49, Z82.49) Status: Active Social History Name Dates Details - Status: Name Dates Details Never smoker Vital Signs Date Test Result Details 28-Apr-20199:50 BP Systolic 205 mm[Hg] Status: Comments: Location: LUE; Position: Sitting BP Diastolic 111 mm[Hg] Status: Comments: Location: LUE; Position: Sitting Heart Rate 60 /min Status: Results Date Description Value Details Results not documented Plan of Care Name Dates Details Planned Observations Planned Goals not documented Planned Encounters Appointment; SKY DERAS M.D. On: 30-May-2019 13:00 Interventions Provided Medication Changes* Dymista 137-50 MCG/ACT Nasal Suspension - Start Labs/Procedures/Imaging* Tobacco Use Screening; Done: 28 Apr 2019 Plan* 1. Will begin Dymista BID for the next 4 weeks with sinus rinse daily. Will begin dietary modifications and continue on the PPI. Fu in 4 weeks. Instructions Name Dates Details Instructions not documented Encounters Appointment; SKY DERAS M.D. Encounter Diagnosis: Problem not documented On: 28-Apr-2019 9:00
--- OUTSIDE RECORDS SUMMARY | 2019-05-01 15:07 | XMS REPORT | Summary of Care ---
Author Author [facility] Organization [facility] Address Unknown Phone Unavailable Encounter HQ Encntr_alias(FIN) [id number] Date(s): 03/17/19 - 03/17/19 [facility] [address] [place] [address]- [phone] Discharge Disposition: Home or Self Care Attending Physician: Ankush Gallardo DO Referring Physician: Ankush Gallardo DO Vital Signs No data available [...]
--- OUTSIDE RECORDS SUMMARY | 2019-05-01 15:07 | XMS REPORT | Summary of Care ---
Author Author [facility] [place] Organization [facility] [place] Address Unknown Phone Unavailable Encounter HQ Encntr_alias(FIN) [id number] Date(s): 03/18/18 - 03/18/18 [facility]patient [facility] - [place] [address] [place] [address]- [phone] Encounter Diagnosis Pain in left knee (Final) - 03/24/18 Discharge Disposition: Home or Self Care Attending [...]
[2019-05-01 16:33] LABS: BILIRUBIN,URINE NEGATIVE (NEGATIVE); CLARITY,URINE SL CLOUDY (CLEAR); COLOR,URINE YELLOW (YELLOW); KETONES,URINE NEGATIVE (NEGATIVE); LEUKOCYTE ESTERASE ,URINE NEGATIVE (NEGATIVE); NITRITE,URINE NEGATIVE (NEGATIVE); PROTEIN,URINE DIPSTICK NEGATIVE (NEGATIVE); URINE UROBILINOGEN 0.2 mg/dL (0.2 - 1)
--- NOTE | 2019-05-01 16:37 | Diagnostic Imaging Report ---
EXAMINATION: Head and cervical spine CT without contrast. HISTORY: Status post fall, head trauma, passed out COMPARISON: Head CT 09/10/2018 TECHNIQUE: Multidetector axial images were obtained without contrast from the foramen magnum to the vertex and through the cervical spine. The images were reconstructed using brain and bone algorithms. Thin section brain images were reformatted into coronal and sagittal planes. Dose modulation, iterative reconstruction, and/or weight based adjustment of the mA/kV was utilized to reduce the radiation dose to as low as reasonably achievable. HEAD CT FINDINGS: Skull/scalp: Occipitoparietal scalp swelling/hematoma without underlying fractures. Parenchyma: -Mild chronic microvascular ischemic changes. -Ill-defined hypodensity along the inferior aspect of the left head of the caudate nucleus may represent an age indeterminate area of ischemia, which was not clearly visualized on prior head CT. -No mass, hemorrhage or CT evidence of acute vascular insult. Brain volume: Normal for age. Ventricles: No hydrocephalus or displacement. Arteries: No density suggestive of thrombus. Dural sinuses: No abnormal density. Extra-axial spaces: No abnormal density. Foramen magnum: No mass, Chiari malformation, or basilar invagination. Sella: Enlarged, partially empty, unchanged from prior study Paranasal/mastoid sinuses: Imaged portions unremarkable. CERVICAL SPINE CT FINDINGS: Alignment:Reversal of the cervical lordosis centered at C3-C4. Minimal C2-C3 anterolisthesis. Soft tissues: Normal. Vertebrae: Normal height and density. No acute fracture, infection or neoplasm. Degenerative changes: C1-C2: Normal C2-C3: Normal C3-C4: Asymmetric right disc osteophyte complex measuring, bilateral uncovertebral necrosis. Severe right and moderate left foraminal stenoses. Mild spinal canal stenosis. C4-C5: Disc osteophyte compresses formation, bilateral uncovertebral and facet processes. Moderate spinal canal and severe bilateral foraminal stenosis worst on the right. C5-C6: Disc osteophyte compresses formation, bilateral uncovertebral arthrosis. Mild to moderate spinal canal stenosis. Severe bilateral foraminal stenosis worst on the left. C6-C7: Normal C7-T1: Normal IMPRESSION: Head CT: 1. No acute postraumatic intracranial hemorrhage. 2. Occipitoparietal scalp swelling/hematoma without underlying fractures. 3. Mild chronic microvascular ischemic changes. 4. New hypodensity in the left head of the caudate nucleus may represent age indeterminate area of ischemia. If there is clinical concern for acute vascular insult consider brain MRI for further evaluation. Cervical spine CT: 1. No acute fractures or dislocations. 2. Chronic degenerative changes as described. Note: Acute post traumatic spinal cord, vascular or ligamentous injury cannot adequately be assessed with CT. Signed by: Dr. Corinne Sargent M.D. on 05/01/2019 4:34 PM
--- NOTE | 2019-05-01 16:55 | Diagnostic Imaging Report ---
EXAMINATION: CHEST SINGLE (PORTABLE) INDICATION: Fall COMPARISON: Chest CT of 06/01/2018 FINDINGS: LINES/TUBES:None LUNGS:The lungs are well-inflated. No focal consolidation or pulmonary edema. PLEURA:No pleural effusion or pneumothorax. MEDIASTINUM:The cardiomediastinal silhouette appears normal in size and shape. BONES/SOFT TISSUES:No acute osseous injury. Sternotomy wires intact. ABDOMEN:No free air under the diaphragm. IMPRESSION: No focal pneumonia or pulmonary edema. Signed by: Cydney Negron MD on 05/01/2019 4:51 PM
[2019-05-01 16:58] LABS: BACTERIA,URINE MODERATE /HPF; EPITHELIAL CELLS,URINE MODERATE /LPF
== END 2019-05-01 20:00 | disposition left against medical advice (07) ==
LOC: ER 15:05
DX: R42 Dizziness and giddiness (principal)
CPT/HCPCS: 70450; 71045; 72125; 81001; 87086; 93005; 99281

== ENCOUNTER 2020-07-16 10:42 | Inpatient (IN) | payer MEDICARE ==
[2020-07-11 11:41] LABS: BASOPHILS # (AUTO) 0.1 (0.0-0.1); BASOPHILS % 0.8 % (0.0-1.0); EOSINOPHILS % 0.4 % (0.0-6.0); HEMATOCRIT 34.8 % (34.2-44.1); HEMOGLOBIN 11.2 g/dL (12.0-16.0); LYMPHOCYTES # (AUTO) 2.7 (1.0-3.2); LYMPHOCYTES % 27.2 % (18.0-39.1); MEAN CORPUSCULAR HEMOGLOBIN 32.3 pg (28-32); MEAN CORPUSCULAR HGB CONC 32.2 g/dL (31-35); MEAN CORPUSCULAR VOLUME 100.3 fL (81-99); MONOCYTES # (AUTO) 0.7 (0.2-0.8); MONOCYTES % 7.3 % (4.4-11.3); NEUTROPHILS # (AUTO) 6.4 (2.1-6.9); NEUTROPHILS % 63.9 % (38.7-80.0); PLATELET COUNT 210 x10e3/uL (140-360); RED BLOOD COUNT 3.47 x10e6/uL (3.6-5.1); RED CELL DISTRIBUTION WIDTH 14.2 % (11.7-14.4)
[2020-07-11 11:59] LABS: ALBUMIN 3.5 g/dL (3.5-5.0); ALBUMIN/GLOBULIN RATIO 0.9 (0.8-2.0); ANION GAP 14.5 mmol/L (8-16); CALCIUM 8.8 mg/dL (8.4-10.2); CREATININE, SERUM 1.69 mg/dL (0.57-1.11); POTASSIUM 4.5 mmol/L (3.5-5.1)
[2020-07-16] VITALS (21 sets, daily range): BP systolic 112–231; BP diastolic 53–104
[~2020-07-16] VITALS: Ht 165.1 cm; Wt 94.3 kg
[~2020-07-16 10:42] MED LIST changes: +ALBUTEROL0.63 MG/3 INH; +AMLODIPINE BESY10 MG PO; +ATORVASTATIN CA10 MG PO; +CETIRIZINE HCL10 MG PO; +CLOPIDOGREL75 MG PO; +HYDROCHLOROTHIA25 MG PO; +LINZESS290 MCG PO
--- NOTE | 2020-07-16 11:45 | NUR ---
pt in CCL 10 , prepped for procedure. Alert oriented and appropriate, PERRLA, respirations even and unlabored to room air. Pulses x4 extremities equal and palpable weak . Cap fill brisk < 3 sec. - modified barbeau and + neurovascular function of right wrist/hand. bilateral groin prepped for procedure. skin intact. Skin warm and dry integrity appears intact in general. IV 22g to left anterior forearm and presents healthy w/o s/s of infiltration or complaint. Abdomen soft and supple. pt offered toileting, denies need to urinate or defecate. Personal affects with patient. Family to be called post procedure . Pt verbalizes understanding of POC. Educated sales representative education courses light use. bed low and locked, side rails up x2 and call light at side. Awaiting for physician arrival/procedure time. pt using provided/ personal mask for COVID-19 mitigation. -cgf
--- NOTE | 2020-07-16 12:20 | NUR ---
Preop meds given.
[2020-07-16] MEDS ORDERED: ALPRAZOLAM 0.5 MG TAB ONE (12:34)
[2020-07-16] MEDS ORDERED: DIPHENHYDRAMINE HCL 25 MG CAP ONE ×2 (12:34→12:37)
[2020-07-16] MEDS ORDERED: MIDAZOLAM HCL 2 MG/2 ML VIAL ONE ×2 (12:54→13:43)
[2020-07-16] MEDS ORDERED: FENTANYL CITRATE/PF 100MCG/2 ML INJ ONE (12:55)
[2020-07-16] MEDS ORDERED: IOPAMIDOL 370 MG/ML 200 ML INFUS..BTL INJ ONE (12:55)
[2020-07-16] MEDS ORDERED: LIDOCAINE HCL 2% LOCAL 20 ML VIAL ONE (12:55)
[2020-07-16] MEDS ORDERED: SODIUM CHLORIDE 0.9% 1000ML 1,000 ML ONE (12:55)
[2020-07-16] MEDS ORDERED: HEPARIN SOD/SOD CHLORIDE 2,000 ML ONE (12:56)
[2020-07-16] MEDS ORDERED: BIVALRIUDIN 250 MG/VIAL VIAL IV ONE (13:56)
[2020-07-16] MEDS ORDERED: ADENOSINE 6MG/2ML 1 ML ONE (13:57)
[2020-07-16] MEDS ORDERED: SODIUM CHLORIDE 0.9% 50ML 0 ML ONE (13:57)
[2020-07-16] MEDS ORDERED: SODIUM CHLORIDE 0.9% 50ML 50 ML ONE ×2 (13:57→14:02)
[2020-07-16] MEDS ORDERED: ADENOSINE 3MG/1ML 30ML VIAL ONE (14:02)
--- NOTE | 2020-07-16 14:10 | NUR ---
bedside report received from Wendy Lang RN. Alert oriented and appropriate, PERRLA, respirations even and unlabored to room air. Pulses x4 extremities equal and palpable weak lower extremities. Right groin 6fr sheath stat-locked with caps. No s/s of hematoma or gross abnormality. Skin warm and dry integrity appears intact. IV 22g to left anterior forearm presents healthy w/o s/s of infiltration or complaint. Angiomax infusion @ 28.6 ml till complete. Abdomen soft and supple. pt offered toileting, denies need to urinate or defecate. No personal affects with patient. Family not available. Pt understanding of POC. Bedside telemetry/monitoring initiated. Currently w/o complaint of pain or need. baseline VS noted. Call light within reach, bed low and locked, side rails up x2. pt using provided/ personal mask for COVID-19 mitigation. -cgf
--- NOTE | 2020-07-16 14:25 | NUR ---
20mg labetalol given slow IVP. IV presents healthy. PO fluids and ice provided on request
[2020-07-16] MEDS ORDERED: LABETALOL HCL 20 ML ONE (14:33)
[2020-07-16] MEDS ORDERED: ASPIRIN 325 MG TAB ONE (14:34)
[2020-07-16] MEDS ORDERED: PRASUGREL 10 MG TAB ONE (14:34)
--- NOTE | 2020-07-16 14:45 | NUR ---
Neurologically intact. no deficits. HUA w/ strength and purpose. no gross deformities with facial expression, and continues to express needs appropriately with BP > 200 sbp. will continue to monitor for base line neuro deviations.
--- NOTE | 2020-07-16 15:10 | NUR ---
BP trend reviewed and RX effects shared with Dr. Ellis, orders received.
[2020-07-16] MEDS ORDERED: NITROGLYCERIN/D5W 200 MCG/ML 0 ML ONE (15:13)
--- NOTE | 2020-07-16 15:25 | NUR ---
medication retrieved from pharmacy. clarification RX orders with dr. tobias. RX order w/o alteration.
--- NOTE | 2020-07-16 15:40 | NUR ---
attempted establishment of second IV for medication administration. right AC 20g unable to thread. held pressure for 10 minutes due to anticoagulation. unable to locate suitable location for 2nd IV. will utilize 22g.
--- NOTE | 2020-07-16 15:50 | NUR ---
20mg Nicardipine bolus, secondary check with Sowmya Haley rn followed by 5mg nicardipine gtt to 22g.
[2020-07-16] MEDS ORDERED: NICARDIPINE HCL SOLN 10 ML ONE (15:59)
--- NOTE | 2020-07-16 16:10 | NUR ---
report called to ICU Melony of above events and facts. currently resting w/o distress or need. pt aware of NPO status till sheath DC. right groin with minimal oozing , no gross hematoma. BP in 110's post nicardipine gtt start. awaiting room ready.
--- OUTSIDE RECORDS SUMMARY | 2020-07-16 17:26 | XMS REPORT | Continuity of Care Document ---
Author Author [facility] t Organization [facility] t Address [address] [place] [address] Phone Unavailable Care Team Providers Care Glass Sander Name Role Phone BROCK GALLARDO DO PCP Doctor Unassigned, Name No Attphys Unavailable Kerline Tong Attphys Nicanor Culp MD, Brice [facility], - Clc Attphys Unavailable SKY DERAS M.D. Attphys Unavailable ALEX SCHMIDT Attphys Unavailable Carlos WEST Attphys Unavailable CONNER RONDON Attphys Unavailable Xiomy FISH Attphys Unavailable Marnie SHINE Attphys Unavailable Siena JOHN Attphys Unavailable Payers Payer Name Policy Type Policy Number Effective Date Expiration Date Carlos Perez Plus [id number] 2018 00:00:00 [facility] [id number] 2017 00:00:[address] [facility] [employer] Medicare Advantage [id number] 2018 00:00:00 [facility] Problems Condition Name Condition Details Condition Category Status Onset Date Resolution Date Last Treatment Date Treating Clinician Comments Source History of arthritis History of arthritis Problem Resolved [facility] History of high blood pressure History of high blood pressure Probl em Resolved [facility] History of chronic obstructive lung disease History of chronic obstructive lung disease Problem Resolved [facility] History of gastritis History of gastritis Problem Resolved [facility] History of kidney disease History of kidney disease Problem Resolved [facility] Dysphonia Dysphonia Problem Active [facility] Globus hystericus Globus hystericus Problem Active [facility] Chronic GERD Chronic GERD Problem Active [facility] Nasal congestion Nasal congestion Problem Active [facility] Back pain Back pain Problem Active [facility] Hypertension Hypertension Problem Active [facility] Hypertensive urgency Hypertensive urgency Problem Active [facility] Nausea and vomiting Nausea & vomiting Problem Active [facility] Left-sided trigeminal neuralgia Trigeminal neuralgia of left side of face Problem Active [facility] Renal insufficiency Renal insufficiency Problem Active [facility] Allergies, Adverse Reactions, Alerts Allergy Name Allergy Type Status Severity Reaction(s) Onset Date Inacti ve Date Treating Clinician Comments Source CODEINE DA Active SV 2017-11-05 00:00:00 [facility] Codeine Allergy to Substance Active itching 2017-01-10 00:00:00 [facility] codeine Allergy to drug (finding) Active [facility] Family History Family Member Diagnosis Comments Start Date Stop Date Source Mother Family history of allergies [facility] Mother Family history of heart disease [facility] Social History Smoking Status Start Date Stop Date Source [facility] smoked tobacco (finding[facility] Medications Ordered Medication Name Filled Medication Name Start Date Stop Da te Current Medication? Ordering Clinician Indication Dosage Frequency Signature (SIG) Comments Components Source Fluticasone Propionate 50 MCG/ACT Nasal Suspension Flu ticasone Propionate 50 MCG/ACT Nasal Suspension 2019-06-26 00:00:00 Yes MCKENZIE CEDILLO M.D. QD USE 2 SPRAYS IN EACH NOSTRIL DAILY [facility] Azelastine HCl - 0.15 % Nasal Solution Azelastine HCl - 0.15 % Nasal Solution 2019-06-26 00:00:00 Yes SKY DERAS M.D. USE 2 SPRAYS IN EACH NOSTRIL DAILY [facility] Fluticasone Propionate 50 MCG/ACT Nasal Suspension Flu ticasone Propionate 50 MCG/ACT Nasal Suspension 2019-05-24 00:00:00 Yes SKY DERAS M.D. QD INSTILL 2 SPRAY Daily both sides [facility] Azelastine HCl - 0.1 % Nasal Solution Azelastine HCl - 0.1 % Nasal Solution 2019-05-01 00:00:00 Yes SKY DERAS M.D. 2 Q0 .5D USE 2 SPRAYS IN EACH NOSTRIL TWICE DAILY. [facility] Dymista 137-50 MCG/ACT Nasal Suspension Dymista 137-50 MCG/A CT Nasal Suspension 2019-04-28 00:00:00 Yes SKY DERAS M.D. 2 sprays each nostril daily. [facility] Fluticasone Propionate 50 MCG/ACT Nasal Suspension Flu ticasone Propionate 50 MCG/ACT Nasal Suspension Yes [facility] carBAMazepine 200 MG Oral Tablet carBAMazepine 200 MG Oral Tablet Yes [facility] Lisinopril TABS Lisinopril TABS Yes [facility] Pantoprazole Sodium 40 MG Oral Tablet Delayed Release Pantoprazole Sodium 40 MG Oral Tablet Delayed Release Yes [facility] diazePAM 10 MG Rectal Gel diazePAM 10 MG Rectal Gel Yes [facility] cloNIDine HCl TABS cloNIDine HCl TABS Yes [facility] Aspirin 81 MG TABS Aspirin 81 MG TABS Yes [facility] Azithromycin 250 MG Oral Tablet Azithromycin 250 MG Oral Tablet Yes [facility] Furosemide 40 MG Oral Tablet Furosemide 40 MG Oral Tablet Yes [facility] traMADol HCl TABS traMADol HCl TABS Yes [facility] Albuterol Sulfate (Ventolin Hfa) 18 Gm Hfa.aer.ad Albu terol Sulfate (Ventolin Hfa) 18 Gm Hfa.aer.ad Yes 1 Twice A Day [facility] Aspirin (Aspir 81) 81 Mg Tablet. Aspirin (Aspir 81) 81 Mg Tablet.dr Tam 81 Daily [facility] Budesonide/Formoterol Fumarate (Symbicor t 160-4.5 Mcg Inhaler) 10.2 Gm Hfa.aer.ad Budesonide/Formoterol Fumarate (Symbicor t 160-4.5 Mcg Inhaler) 10.2 Gm Hfa.aer.ad Yes 1 Twice A Day [facility] Carbamazepine 200 Mg Tablet Carbamazepine 200 Mg Tablet Yes 200 Daily [facility] Cholecalciferol (Vitamin D3) (Vitamin D) 1,000 Unit [place] Cholecalciferol (Vitamin D3) (Vitamin D) 1,000 Unit Tablet Yes 5000 Daily [facility] Clonidine (Catapres-Tts 2) 1 Each Patch.tdwk Clonidine (Catapres-Tts 2) 1 Each Patch.tdwk Yes 1 Week [facility] Diazepam 5 Mg Tablet Diazepam 5 Mg Tablet Yes 10 Daily [facility] Furosemide 40 Mg Tablet Furosemide 40 Mg Tablet Yes 40 Daily [facility] Gabapentin 400 Mg Capsule Gabapentin 400 Mg Capsule Yes 400 Three Times A Day [facility] Hydralazine Hcl 25 Mg Tab Hydralazine Hcl 25 Mg Tab Yes 100 Every 8 Hours [facility] Hydrocodone Bit/Acetaminophen (Hydrocodon-Acetaminophe n 5-325) 1 Each Tablet Hydrocodone Bit/Acetaminophen (Hydrocodon-Acetaminophen 5-325) 1 Each Tablet Yes 1 As Needed as needed for Pain [facility] Linzess Linzess Yes 290 Daily [facility] Lisinopril 10 Mg Tablet Lisinopril 10 Mg Tablet Yes 20 Daily [facility] Pantoprazole Sodium (Protonix) 40 Mg Tablet. Pantopr azole Sodium (Protonix) 40 Mg Tablet. Yes 40 Daily [facility] Tramadol Hcl (Ultram 50MG*) 50 Mg Tab, 50 Mg Oral Tram adol Hcl (Ultram 50MG*) 50 Mg Tab, 50 Mg Oral 2017-12-14 00:00:00 No 50 As Ne eded [facility] Albuterol Sulfate 0.63 Mg/3 Ml Vial.bharat, Albuterol Sul fate 0.63 Mg/3 Ml Vial.bharat, 2017-12-13 00:00:00 No [facility] Ondansetron (Zofran Odt) 4 Mg Tab.rapdis, 8 Mg Subling ual Ondansetron (Zofran Odt) 4 Mg Tab.rapdis, 8 Mg Sublingual 2017-12-13 00:00:00 No 8 Every 6 Hours as needed for Nausea [facility] Alprazolam (Xanax) 2 Mg Tablet, 1 Mg Oral Alprazolam ( Xanax) 2 Mg Tablet, 1 Mg Oral 2017-01-10 00:00:00 No 1 as needed for Anxi ety [facility] Atorvastatin Calcium 20 Mg Tablet, 40 Mg Oral Atorvast atin Calcium 20 Mg Tablet, 40 Mg Oral 2017-01-10 00:00:00 No 40 Daily [facility] Diclofenac Sodium (Voltaren) 100 Gm Gel..gram., 1 % To pically Diclofenac Sodium (Voltaren) 100 Gm Gel..gram., 1 % Topically 2017-01-10 00:00:00 No 1 Daily [facility] Isosorbide Mononitrate 20 Mg Tablet, 60 Mg Oral Isosor bide Mononitrate 20 Mg Tablet, 60 Mg Oral 2017-01-10 00:00:00 No 60 Daily [facility] Lidocaine (Lidoderm) 700 Mg Adh..patch, 5 % Topically Lidocaine (Lidoderm) 700 Mg Adh..patch, 5 % Topically 2017-01-10 00:00:00 No 5 Daily [facility] Linzess , 298 Mg Oral Linzess , 298 Mg Oral 2017-01-10 00:00:00 No 298 Daily [facility] Nebivolol Hcl (Bystolic) 10 Mg Tablet, 10 Mg Oral Nebi volol Hcl (Bystolic) 10 Mg Tablet, 10 Mg Oral 2017-01-10 00:00:00 No 10 Daily [facility] Oxycodone Hcl 20 Mg Tablet, 80 Mg Oral Oxycodone Hcl 20 Mg Table t, 80 Mg Oral 2017-01-10 00:00:00 No 80 Four Times Daily [facility] Pantoprazole Sodium (Protonix) 40 Mg Tablet., 40 Mg Oral Pantoprazole Sodium (Protonix) 40 Mg Tablet., 40 Mg Oral 2017-01-10 00:00:00 No 40 Daily [facility] Aspirin 325 Mg Tablet, 325 Mg Oral Aspirin 325 Mg Tablet, 325 Mg Oral 2016-10-17 00:00:00 No 325 Daily [facility] Lisinopril 2.5 Mg Tablet, 5 Mg Oral Lisinopril 2.5 Mg Tablet, 5 Mg Oral 2016-10-17 00:00:00 No 5 Daily [facility] Potassium Chloride 10 Meq Tab.er.prt, 10 Meq Oral Pota ssium Chloride 10 Meq Tab.er.prt, 10 Meq Oral 2016-10-17 00:00:00 No 10 Daily [facility] Vital Signs Vital Name Observation Time Observation Value Comments Source Height 2019-06-26 13:25:00 65 [in_us] [facility] Weight 2019-06-26 13:25:00 187.1875 [lb_av] [facility] Body Mass Index Calculated 2019-06-26 13:25:00 31.15 kg/m2 [facility] BP Systolic 2019-04-28 09:50:00 205 mm[Hg] Location: LUE; Positi on: Sitting [facility] BP Diastolic 2019-04-28 09:50:00 111 mm[Hg] Location: LUE; Positi on: Sitting [facility] Heart Rate 2019-04-28 09:50:00 60 /min [facility] Procedures Procedure Date / Time Performed Performing Clinician Isaiah e Computed tomography of brain without radiopaque contrast 201 05-01-09 00:00:00 [place] [facility] Computed tomography of cervical spine without contrast 05-01 00:00:00 [place] [facility] Computed tomography of brain without radiopaque contrast 201 04-23-19 00:00:00 SKY ABREU [facility] CT maxillofacial area wo contrast 2018-09-10 00:00:00 SKY ABREU [facility] Encounters Start Date/Time End Date/Time Encounter Type Admission Type Attendi [facility] Care Department Encounter ID Source 2020-07-11 00:00:00 2020-07-11 00:00:00 Orders Only D octor Unassigned, [place] [facility] [id number] 2020-07-05 11:25:00 2020-07-05 23:59:00 Hospital Encounter Farheen Andrekirstenrossy [facility] ([facility]) [id number] 2020-07-05 09:23:25 2020-07-05 11:24:00 Hospital Encounter Brice Hodgson [facility] ([facility]) [id number] 2020-07-05 00:00:00 2020-07-05 00:00:00 Orders Only D octor Unassigned, [place] [facility] [id number] 2020-07-03 11:16:53 2020-07-03 11:31:53 Administrative Underwriter Visit Mikayla mcmanus [facility] ([facility]) [id number] 2019-06-26 13:30:00 2019-06-26 13:30:00 Appointment; SKY DERAS M.D. BYRD, MICHAEL, M.D. [facility] Otorhinolaryngology - [facility] [id number] [facility] 2019-05-02 14:40:00 2019-05-02 14:40:00 Outpatient E [id number] 2019-05-01 15:05:00 2019-05-01 20:00:00 Departed Emergency Room 1 ALEX SCHMIDT [facility] [id number] [facility] 2019-04-28 09:00:00 2019-04-28 09:00:00 Appointment; SKY DERAS M.D. SKY DERAS M.D. [facility] Otorhinolaryngology [place] [id number] [address] [place] [address] Physicians 2019-03-17 08:27:00 2019-03-17 08:27:00 Outpatient [id number] 2018-09-16 10:27:00 2018-09-16 14:34:00 Departed Emergency Room [facility] [id number] [facility] Patients [facility] 2018-09-10 18:54:00 2018-09-11 00:56:00 Departed Emergency Room 1 CARA WEST [facility] [id number] [facility] 2018-06-01 10:38:00 2018-06-01 10:38:00 Registered Clinic 3 CONNER WELSH [facility] [id number] [facility] 2018-02-27 18:16:00 2018-02-27 21:45:00 Departed Emergency Room 1 RENATE FISH [facility] [id number] [facility]. [facility] 2017-12-14 05:19:00 2017-12-14 05:19:00 Registered Surgical Day Care [facility] [id number] [facility]. [facility] 2017-07-06 20:37:00 2017-07-06 23:56:00 Departed Emergency Room ER CELE SHINE [facility] [id number] [facility] 2017-06-02 08:37:00 2017-06-02 08:37:00 Registered Surgical Day Care [facility] [id number] [facility] Patients [facility] Results Test Description Test Time Test Comments Results Result Comments Source BASIC METABOLIC PANEL 2019-06-13 14:12:00 Test Item SODIUM (test code = NA) 139 mmol/L 136-145 N POTASSIUM (test code = K) 4.3 mmol/L 3.5-5.1 N CHLORIDE (test code = CL) 106.0 mmol/L 98-107 N CARBON DIOXIDE (test code = CO2) 25.0 mmol/L 21-32 N ANION GAP (test code = GAP) 12.3 10-20 N GLUCOSE (test code = GLU) 71 mg/dL 74-106 L BLOOD UREA NITROGEN (test code = BUN) 33 mg/dL 7-18 H GLOMERULAR FILTRATION RATE (test code = GFR) 38 mL/min >=60 Estimated GFR by using Modified MDRD formula.Chronic kidney disease is defined as either kidney damageor GFR <60 mL/min/1.73 m2 for >3 months. CREATININE (test code = CREAT) 1.60 mg/dL 0.55-1.02 H Note change in reference range due to change in reagent. BUN/CREATININE RATIO (test code = BUN/CREA) 20.6 10-20 H CALCIUM (test code = CA) 8.8 mg/dL 8.5-10.1 N BASIC METABOLIC [id number] 14:05:00* Test Item Value Reference Range Interpretation Comments SODIUM (test code = NA) 139 mmol/L 136-145 N POTASSIUM (test code = K) 4.3 mmol/L 3.5-5.1 N CHLORIDE (test code = CL) 106.0 mmol/L 98-107 N CARBON DIOXIDE (test code = CO2) mmol/L 21-32 ANION GAP (test code = GAP) 10-20 GLUCOSE (test code = GLU) mg/dL 74-106 BLOOD UREA NITROGEN (test code = BUN) mg/dL 7-18 GLOMERULAR FILTRATION RATE (test code = GFR) mL/min >=60 CREATININE (test code = CREAT) mg/dL 0.55-1.02 BUN/CREATININE RATIO (test code = BUN/CREA) 10-20 CALCIUM (test code = CA) 8.8 mg/dL 8.5-10.1 N PROTHROMBIN [id number] 13:41:00* Test Item Value Reference Range Interpretation Comments PROTHROMBIN TIME PATIENT (test code = PTP) 11.8 seconds 9.0-14.0 N INTERNATIONAL NORMAL RATIO (test code = INR) 1.0 0.8-1.2 N The therapeutic range for oral anticoagulant therapy formost indications is an international normalized ratio (INR)of between 2.0 and 3.0. The recommended therapeutic INRrange for various clinical situations is listed below: Clinical Situation INR range Pulmonary e mbolism treatment (2.0-3.0)Venous thrombosis treatmentVenous thrombosis prophylaxis (high risk surgery)Prevention of systemic embolism from: Acute myocardial infarction Valvular heart disease Atrial fibrillation Mechanical prosthetic heart valves (2.5-3.5) THROMBOPLASTIN TIME [id number] 13:41:00* Test Item Value Reference Range Interpretation Comments THROMBOPLASTIN TIME PARTIAL (test code = PTT) 33.7 seconds 25.0-36. 5 N - XR CHEST 2 [id number] 13:27:00 FAX: Brock Salgado MD [phone] [place]: O St: PRE FAX: Brock Naik [phone] Name: MARIN CRABTREE [facility] : 1945 Age/S: 73/F [address] [facility] Unit #: [id number] Loc: SHANNON SARAH Gutierrez [address] Phys: Brock Rondon MD Acct: [id number] Dis Date: Status: PRE [facility] PHONE #: [phone] Exam Date: 06/13/2019 1256 FAX #: [phone] Reason: PRE-OP EXAMS: CPT CODE: [id number] XR CHEST 2 V 63027 HISTORY: Preop. COMPARISON: November 05, 2017. AP and lateral view of the chest: No acute infiltrates, effusion or congestion. Cardiac silhouette is mildly enlarged. Patient is post median sternotomy. IMPRESSION: No acute infiltrates, effusion or congestion. at 1327 Reported and signed by: Lamont Paige M.D. CC: Brock Rondon; Brock Gallardo Technologist: RT Mckay(Rashida) Trnscrd Date/Time/By: 06/13/2019 (2345) : By: [email or web address] Orig Print D/T: S: 06/13/2019 (3614) PAGE 1 Signed Report Urine [id number] 16:58:00* Test Item Value Reference Range Interpretation Comments Urine WBC (test code = 5821-4) NONE 0-5 [facility] [id number] 16:58:00* Test Item Value Reference Range Interpretation Comments Urine RBC (test code = 66925-7) NONE 0-5 [facility] [id number] 16:58:00* Test Item Value Reference Range Interpretation Comments Urine Bacteria (test code = 54873-1) MODERATE NONE [facility] Epithelial [id number] 16:58:00 * Test Item Value Reference Range Interpretation Comments Urine Epithelial Cells (test code = 04334-1) MODERATE NONE [facility]2019-05-01 16:49:00 [facility] [address] [place] [address] Patient Name: MARIN CRABTREE MR #: [id number] : 1945 Age/Sex: 73/F Req #: [id number] Adm Physician: Ordered by: ROXANA BRUNNER, ALEX BRUNNER Report #: [id number] Location: ER Room/Bed: Procedure: [id number] DX /CHEST SINGLE (PORTABLE) Exam Date: 05/01/19 Exam Ti me: 1610 REPORT STATUS: Signed E XAMINATION: CHEST SINGLE (PORTABLE) INDICATION: Fall COMPARISON: Chest CT of 06/01/2018 FINDINGS: LINES/TUBES:None LUNGS:The lungs are well-inflated. No focal consolidation or pulmonary edema. PLEURA: No pleural effusion or pneumothorax. MEDIASTINUM:The cardiomediastinal silh ouette appears normal in size and shape. BONES/SOFT TISSUES:No acute osseou s injury. Sternotomy wires intact. ABDOMEN:No free air under the diaphragm. IMPRESSION: No focal pneumonia or pulmonary edema. Signed by: Jyoti Cervantes MD on 05/01/2019 4:51 PM Dictated By: JUSTEN CERVANTES MD Electronica lly Signed By: JUSTEN CERVANTES MD on 05/01/191650 Transcribed By: SEBASTIAN on 1650 COPY TO: ALEX SCHMIDT Urine [id number] 16:34:00* Test Item Value Reference Range Interpretation Comments Urine Color (test code = 5778-6) YELLOW YELLOW [facility] [id number] 16:34:00* Test Item Value Reference Range Interpretation Comments Urine Clarity (test code = 69384-5) SL CLOUDY CLEAR [facility] Specific [id number] 16:34:00 * Test Item Value Reference Range Interpretation Comments Urine Specific [place] (test code = 5811-5) 1.010 1.010-1.02 5 [facility] [id number] 16:34:00* Test Item Value Reference Range Interpretation Comments Urine pH (test code = 51866-6) 6 5-7 [facility] Leukocyte [id number] 16:34:00* Test Item Value Reference Range Interpretation Comments Urine Leukocyte Esterase (test code = 02283-9) NEGATIVE NEGATIV E [facility] [id number] 16:34:00* Test Item Value Reference Range Interpretation Comments Urine Nitrite (test code = 60184-7) NEGATIVE NEGATIVE [facility] [id number] 16:34:00* Test Item Value Reference Range Interpretation Comments Urine Protein (test code = 46008-6) NEGATIVE NEGATIVE [facility] Glucose (UA)2019-05-01 16:34:00* Test Item Value Reference Range Interpretation Comments Urine Glucose (UA) (test code = 70847-3) NEGATIVE NEGATIVE [facility] [id number] 16:34:00* Test Item Value Reference Range Interpretation Comments Urine Ketones (test code = 37033-5) NEGATIVE NEGATIVE [facility] [id number] 16:34:00* Test Item Value Reference Range Interpretation Comments Urine Urobilinogen (test code = 97552-3) 0.2 0.2-1 [facility] [id number] 16:34:00* Test Item Value Reference Range Interpretation Comments Urine Bilirubin (test code = 1977-8) NEGATIVE NEGATIVE [facility] [id number] 16:34:00* Test Item Value Reference Range Interpretation Comments Urine Blood (test code = 78781-5) NEGATIVE NEGATIVE [facility] [id number] 16:21:00 [facility] [address] [place] [address] Patient Name: MARIN CRABTREE MR #: [id number] : 1945 Age/Sex: 73/F Req #: [id number] Adm Physician: Ordered by: ROXANA BRUNNER, ALEX BRUNNER Report #: [id number] Location: ER Room/Bed: Procedure: [id number] CT /CT CERVICAL SPINE WO Exam Date: 05/01/19 Exam Time: 1605 REPORT STATUS: Signed EXAM INATION: Head and cervical spine CT without contrast. HISTORY: Status pos t fall, head trauma, passed out COMPARISON: Head CT 09/10/2018 TECHNIQUE: Mul tidetector axial images were obtained without contrast from the foramen magnum to the vertex and through the cervical spine. The images were reconstructed u sing brain and bone algorithms. Thin section brain images were reformatted in to coronal and sagittal planes. Dose modulation, iterative reconstruction, and /or weight based adjustment of the mA/kV was utilized to reduce the radiation dose to as low as reasonably achievable. HEAD CT FINDINGS: Skul l/scalp: Occipitoparietal scalp swelling/hematoma without underlying fractures . Parenchyma: -Mild chronic microvascular ischemic changes. -Il l-defined hypodensity along the inferior aspect of the left head of the caudat e nucleus may represent an age indeterminate area of ischemia, which was not c learly visualized on prior head CT. -No mass, hemorrhage or CT evidence of acu te vascular insult. Brain volume: Normal for age. Ventricles : No hydrocephalus or displacement. Arteries: No density suggestive of thrombus. Dural sinuses: No abnormal density. Extra-axial spaces : No abnormal density. Foramen magnum: No mass, Chiari malformation, or basilar invagination. Sella: Enlarged, partially empty, unchanged from p rior study Paranasal/mastoid sinuses: Imaged portions unremarkable. CERVICAL SPINE CT FINDINGS: Alignment:Reversal of the cervical lordosis centered at C3-C4. Minimal C2-C3 anterolisthesis. Soft tissues: Normal. Vertebrae: Normal height and density. No acute fracture, infection or neoplasm. Degenerative changes: C1-C2: Normal C2-C3: Normal C3-C4: Asymmetric right disc osteophyte complex measuring, bilateral uncove rtebral necrosis. Severe right and moderate left foraminal stenoses. Mild spin al canal stenosis. C4-C5: Disc osteophyte compresses formation, bilateral u ncovertebral and facet processes. Moderate spinal canal and severe bilateral f oraminal stenosis worst on the right. C5-C6: Disc osteophyte compresses f ormation, bilateral uncovertebral arthrosis. Mild to moderate spinal canal pat nosis. Severe bilateral foraminal stenosis worst on the left. C6-C7: Norm al C7-T1: Normal IMPRESSION: Head CT: 1. No acute postraumatic intracranial hemorrhage. 2. Occipitoparietal scalp swelling/hematoma without underlying fractures. 3. Mild chronic microvascular ischemic changes. 4. New hypodensity in the left head of the caudate nucleus may represent age inde terminate area of ischemia. If there is clinical concern for acute vascular in sult consider brain MRI for further evaluation. Cervical spine CT: 1. No acute fractures or dislocations. 2. Chronic degenerative changes as descr ibed. Note: Acute post traumatic spinal cord, vascular or ligamentous injur y cannot adequately be assessed with CT. Signed by: Dr. Gigi Sargent M.D. on 05/01/2019 4:34 PM Dictated By: GIGI SARGENT MD 33 Transcribed By: SEBASTIAN on 05/01/191633 COPY TO: ALEX SCHMIDT CT BRAIN [id number] 16:21:00 [place] [address] Patient Name: MARIN CRABTREE MR #: [id number] : 1945 Age/Sex: 73/F Req #: [id number] Adm Physician: Ordered by: ALEX SCHMIDT MD, MD Report #: [id number] Location: ER Room/Bed: Procedure: [id number] CT /CT BRAIN WO Exam Date: 05/01/19 Exam Time: 1605 REPORT STATUS: Signed EXAMINATION: Head and cervical spine CT without contrast. HISTORY: Status post fall, h ead trauma, passed out COMPARISON: Head CT 09/10/2018 TECHNIQUE: Multidetecto r axial images were obtained without contrast from the foramen magnum to the v ertex and through the cervical spine. The images were reconstructed using brai n and bone algorithms. Thin section brain images were reformatted into mujica l and sagittal planes. Dose modulation, iterative reconstruction, and/or weigh t based adjustment of the mA/kV was utilized to reduce the radiation dose to a s low as reasonably achievable. HEAD CT FINDINGS: Skull/scalp: Occipitoparietal scalp swelling/hematoma without underlying fractures. Parenchyma: -Mild chronic microvascular ischemic changes. -Ill-defined hypodensity along the inferior aspect of the left head of the caudate nucleus may represent an age indeterminate area of ischemia, which was not clearly vi sualized on prior head CT. -No mass, hemorrhage or CT evidence of acute vascul ar insult. Brain volume: Normal for age. Ventricles: No hydr ocephalus or displacement. Arteries: No density suggestive of thrombus. Dural sinuses: No abnormal density. Extra-axial spaces: No abno rmal density. Foramen magnum: No mass, Chiari malformation, or basilar i nvagination. Sella: Enlarged, partially empty, unchanged from prior stud y Paranasal/mastoid sinuses: Imaged portions unremarkable. CERVIC AL SPINE CT FINDINGS: Alignment:Reversal of the cervical lordosis centered at C3-C4. Minimal C2-C3 anterolisthesis. Soft tissues: Normal. Ve rtebrae: Normal height and density. No acute fracture, infection or neoplasm. Degenerative changes: C1-C2: Normal C2-C3: Normal C3-C4: Asymmetric right disc osteophyte complex measuring, bilateral uncovertebral n ecrosis. Severe right and moderate left foraminal stenoses. Mild spinal canal stenosis. C4-C5: Disc osteophyte compresses formation, bilateral uncoverteb ral and facet processes. Moderate spinal canal and severe bilateral foraminal stenosis worst on the right. C5-C6: Disc osteophyte compresses formation, bilateral uncovertebral arthrosis. Mild to moderate spinal canal stenosis. Se betty bilateral foraminal stenosis worst on the left. C6-C7: Normal C 7-T1: Normal IMPRESSION: Head CT: 1. No acute postraumatic intracra nial hemorrhage. 2. Occipitoparietal scalp swelling/hematoma without underlyi ng fractures. 3. Mild chronic microvascular ischemic changes. 4. New hypod ensity in the left head of the caudate nucleus may represent age indeterminate area of ischemia. If there is clinical concern for acute vascular insult cons ider brain MRI for further evaluation. Cervical spine CT: 1. No acute fractures or dislocations. 2. Chronic degenerative changes as described. Note: Acute post traumatic spinal cord, vascular or ligamentous injury cannot adequately be assessed with CT. Signed by: Dr. Gigi Sargent M.D. on 019 4:34 PM Dictated By: GIGI SARGENT MD 163 Transcribed By: SEBASTIAN on 05/01/19 1634 COPY T O: ROXANAALEX Sodium Kbfdg6666-91-93 11:49:00* Test Item Value Reference Range Interpretation Comments Sodium Level (test code = 2951-2) 138 136-145 [facility] Ilqac0199-73-78 11:49:00* Test Item Value Reference Range Interpretation Comments Potassium Level (test code = 2823-3) 3.7 3.5-5.1 [facility] HeightsChloride Yovbj1191-44-84 11:49:00* Test Item Value Reference Range Interpretation Comments Chloride Level (test code = 2075-0) 103 98-107 [facility] HeightsCarbon Dioxide Wybbj4371-83-15 11:49:00* Test Item Value Reference Range Interpretation Comments Carbon Dioxide Level (test code = 2028-9) 27 22-29 [facility] HeightsAnion Dpo2436-77-84 11:49:00* Test Item Value Reference Range Interpretation Comments Anion Gap (test code = 91262-2) 11.7 8-16 [facility] HeightsBlood Urea Mvqqerxh6869-42-85 11:49:00* Test Item Value Reference Range Interpretation Comments Blood Urea Nitrogen (test code = 3094-0) 16 7-26 [facility] HeightsCreatinine2019-01-25 11:49:00* Test Item Value Reference Range Interpretation Comments Creatinine (test code = 2160-0) 1.30 0.57-1.11 H [facility] HeightsBUN/Creatinine Jprfl2765-76-33 11:49:00* Test Item Value Reference Range Interpretation Comments BUN/Creatinine Ratio (test code = 3097-3) 12 02-14 [facility] HeightsEstimat Glomerular Filtration Rate 2018-09-16 11:49:00* Test Item Value Reference Range Interpretation Comments Estimat Glomerular Filtration Rate (test code = 924018748) 49 >60 L Ranges were taken from the National Kidney Disease Education Program and the [facility] literature.Reference ranges:60 or greater: Ciwnbr18-86 ( for 3 consecutive months): Chronic kidney disease 15 or less: Kidney failureSeton [facility] Center Harker HeightsGlucose Nqgol8329-93-88 11:49:00* Test Item Value Reference Range Interpretation Comments Glucose Level (test code = FJB0276) 95 74-118 [facility] HeightsCalcium Dseav9056-90-35 11:49:00* Test Item Value Reference Range Interpretation Comments Calcium Level (test code = 74200-3) 9.1 8.4-10.2 [facility] Hsobk6343-96-16 11:49:00* Test Item Value Reference Range Interpretation Comments Sodium Level (test code = 2951-2) 138 136-145 [facility] HeightsPotassium Snzre3146-66-02 11:49:00* Test Item Value Reference Range Interpretation Comments Potassium Level (test code = 2823-3) 3.7 3.5-5.1 [facility] HeightsChloride Loakw6206-93-75 11:49:00* Test Item Value Reference Range Interpretation Comments Chloride Level (test code = 2075-0) 103 98-107 [facility] HeightsCarbon Dioxide Uykvh2057-14-85 11:49:00* Test Item Value Reference Range Interpretation Comments Carbon Dioxide Level (test code = 2028-9) 27 22-29 [facility] HeightsAnion Gox5528-20-41 11:49:00* Test Item Value Reference Range Interpretation Comments Anion Gap (test code = 77637-8) 11.7 8-16 [facility] HeightsBlood Urea Sphsdzmn1910-22-83 11:49:00* Test Item Value Reference Range Interpretation Comments Blood Urea Nitrogen (test code = 3094-0) 16 7-26 [facility] HeightsCreatinine2019-01-25 11:49:00* Test Item Value Reference Range Interpretation Comments Creatinine (test code = 2160-0) 1.30 0.57-1.11 H [facility] HeightsBUN/Creatinine Huhgg3772-04-44 11:49:00* Test Item Value Reference Range Interpretation Comments BUN/Creatinine Ratio (test code = 3097-3) 12 02-14 [facility] HeightsEstimat Glomerular Filtration Rate 2018-09-16 11:49:00* Test Item Value Reference Range Interpretation Comments Estimat Glomerular Filtration Rate (test code = 259432385) 49 >60 L Ranges were taken from the National Kidney Disease Education Program and the [facility] literature.Reference ranges:60 or greater: Pfxisk26-08 ( for 3 consecutive months): Chronic kidney disease 15 or less: Kidney failureSeton Medical Center Harker HeightsGlucose Kymbm2171-93-27 11:49:00* Test Item Value Reference Range Interpretation Comments Glucose Level (test code = YJR4960) 95 74-118 [facility] HeightsCalcium Nzqzn2538-48-79 11:49:00* Test Item Value Reference Range Interpretation Comments Calcium Level (test code = 42706-0) 9.1 8.4-10.2 [facility] HeightsWhite Blood Xxzna0181-09-23 11:28:00* Test Item Value Reference Range Interpretation Comments White Blood Count (test code = 6690-2) 7.12 4.8-10.8 [facility] HeightsRed Blood Jhynu3578-26-29 11:28:00* Test Item Value Reference Range Interpretation Comments Red Blood Count (test code = 789-8) 3.93 3.6-5.1 [facility] HeightsHemoglobin2019-01-25 11:28:00* Test Item Value Reference Range Interpretation Comments Hemoglobin (test code = 46266-9) 11.9 12.0-16.0 L [facility] HeightsHematocrit2019-01-25 11:28:00* Test Item Value Reference Range Interpretation Comments Hematocrit (test code = 4544-3) 36.4 34.2-44.1 [facility] HeightsMean Corpuscular Sndrfu6202-68-94 11:28:00* Test Item Value Reference Range Interpretation Comments Mean Corpuscular Volume (test code = 787-2) 92.6 81-99 [facility] HeightsMean Corpuscular Dichtyajdc9931-71-17 11:28:00* Test Item Value Reference Range Interpretation Comments Mean Corpuscular Hemoglobin (test code = 785-6) 30.3 28-32 [facility] HeightsMean Corpuscular Hemoglobin Concent 2018-09-16 11:28:00* Test Item Value Reference Range Interpretation Comments Mean Corpuscular Hemoglobin Concent (test code = 786-4) 32.7 31-35 [facility] HeightsRed Cell Distribution Isrxe5279-91-14 11:28:00* Test Item Value Reference Range Interpretation Comments Red Cell Distribution Width (test code = 47685-5) 14.9 11.7 -14.4 H [facility] HeightsPlatelet Wfwny3856-00-35 11:28:00* Test Item Value Reference Range Interpretation Comments Platelet Count (test code = 777-3) 215 140-360 [facility] HeightsNeutrophils (%) (Auto)2018-09-16 11:28:00 * Test Item Value Reference Range Interpretation Comments Neutrophils (%) (Auto) (test code = 28622-2) 57.1 38.7-80.0 [facility] HeightsLymphocytes (%) (Auto)2018-09-16 11:28:00 * Test Item Value Reference Range Interpretation Comments Lymphocytes (%) (Auto) (test code = 736-9) 33.4 18.0-39.1 [facility] HeightsMonocytes (%) (Auto)2018-09-16 11:28:00* Test Item Value Reference Range Interpretation Comments Monocytes (%) (Auto) (test code = 5905-5) 8.1 4.4-11.3 [facility] HeightsEosinophils (%) (Auto)2018-09-16 11:28:00 * Test Item Value Reference Range Interpretation Comments Eosinophils (%) (Auto) (test code = 713-8) 0.4 0.0-6.0 [facility] HeightsBasophils (%) (Auto)2018-09-16 11:28:00* Test Item Value Reference Range Interpretation Comments Basophils (%) (Auto) (test code = 706-2) 0.6 0.0-1.0 [facility] HeightsIM GRANULOCYTES %2018-09-16 11:28:00* Test Item Value Reference Range Interpretation Comments IM GRANULOCYTES % (test code = IM GRANULOCYTES %) 0.4 0.0- 1.0 [facility] HeightsNeutrophils # (Auto)2018-09-16 11:28:00* Test Item Value Reference Range Interpretation Comments Neutrophils # (Auto) (test code = 751-8) 4.1 2.1-6.9 [facility] HeightsLymphocytes # (Auto)2018-09-16 11:28:00* Test Item Value Reference Range Interpretation Comments Lymphocytes # (Auto) (test code = 06586-8) 2.4 1.0-3.2 [facility] HeightsMonocytes # (Auto)2018-09-16 11:28:00* Test Item Value Reference Range Interpretation Comments Monocytes # (Auto) (test code = 742-7) 0.6 0.2-0.8 [facility] HeightsEosinophils # (Auto)2018-09-16 11:28:00* Test Item Value Reference Range Interpretation Comments Eosinophils # (Auto) (test code = 711-2) 0.0 0.0-0.4 [facility] HeightsBasophils # (Auto)2018-09-16 11:28:00* Test Item Value Reference Range Interpretation Comments Basophils # (Auto) (test code = 704-7) 0.0 0.0-0.1 [facility] HeightsAbsolute Immature Granulocyte (auto 2018-09-16 11:28:00* Test Item Value Reference Range Interpretation Comments Absolute Immature Granulocyte (auto (kisha t code = Absolute Immature Granulocyte (auto) 0.03 0-0.1 [facility] HeightsWhite Blood Mpgrb9568-75-10 11:28:00* Test Item Value Reference Range Interpretation Comments White Blood Count (test code = 6690-2) 7.12 4.8-10.8 [facility] HeightsRed Blood Wcmgp2585-71-44 11:28:00* Test Item Value Reference Range Interpretation Comments Red Blood Count (test code = 789-8) 3.93 3.6-5.1 [facility] HeightsHemoglobin2019-01-25 11:28:00* Test Item Value Reference Range Interpretation Comments Hemoglobin (test code = 99358-0) 11.9 12.0-16.0 L [facility] HeightsHematocrit2019-01-25 11:28:00* Test Item Value Reference Range Interpretation Comments Hematocrit (test code = 4544-3) 36.4 34.2-44.1 [facility] HeightsMean Corpuscular Zgpdpp4142-40-18 11:28:00* Test Item Value Reference Range Interpretation Comments Mean Corpuscular Volume (test code = 787-2) 92.6 81-99 [facility] HeightsMean Corpuscular Bxcghsksxm6982-36-19 11:28:00* Test Item Value Reference Range Interpretation Comments Mean Corpuscular Hemoglobin (test code = 785-6) 30.3 28-32 [facility] HeightsMean Corpuscular Hemoglobin Concent 2018-09-16 11:28:00* Test Item Value Reference Range Interpretation Comments Mean Corpuscular Hemoglobin Concent (test code = 786-4) 32.7 31-35 [facility] HeightsRed Cell Distribution Ifajj0552-16-69 11:28:00* Test Item Value Reference Range Interpretation Comments Red Cell Distribution Width (test code = 52502-5) 14.9 11.7 -14.4 H [facility] HeightsPlatelet Wnvjf9111-27-79 11:28:00* Test Item Value Reference Range Interpretation Comments Platelet Count (test code = 777-3) 215 140-360 [facility] HeightsNeutrophils (%) (Auto)2018-09-16 11:28:00 * Test Item Value Reference Range Interpretation Comments Neutrophils (%) (Auto) (test code = 98812-7) 57.1 38.7-80.0 [facility] HeightsLymphocytes (%) (Auto)2018-09-16 11:28:00 * Test Item Value Reference Range Interpretation Comments Lymphocytes (%) (Auto) (test code = 736-9) 33.4 18.0-39.1 [facility] HeightsMonocytes (%) (Auto)2018-09-16 11:28:00* Test Item Value Reference Range Interpretation Comments Monocytes (%) (Auto) (test code = 5905-5) 8.1 4.4-11.3 [facility] HeightsEosinophils (%) (Auto)2018-09-16 11:28:00 * Test Item Value Reference Range Interpretation Comments Eosinophils (%) (Auto) (test code = 713-8) 0.4 0.0-6.0 [facility] HeightsBasophils (%) (Auto)2018-09-16 11:28:00* Test Item Value Reference Range Interpretation Comments Basophils (%) (Auto) (test code = 706-2) 0.6 0.0-1.0 [facility] HeightsIM GRANULOCYTES %2018-09-16 11:28:00* Test Item Value Reference Range Interpretation Comments IM GRANULOCYTES % (test code = IM GRANULOCYTES %) 0.4 0.0- 1.0 [facility] HeightsNeutrophils # (Auto)2018-09-16 11:28:00* Test Item Value Reference Range Interpretation Comments Neutrophils # (Auto) (test code = 751-8) 4.1 2.1-6.9 [facility] HeightsLymphocytes # (Auto)2018-09-16 11:28:00* Test Item Value Reference Range Interpretation Comments Lymphocytes # (Auto) (test code = 73879-0) 2.4 1.0-3.2 [facility] HeightsMonocytes # (Auto)2018-09-16 11:28:00* Test Item Value Reference Range Interpretation Comments Monocytes # (Auto) (test code = 742-7) 0.6 0.2-0.8 [facility] HeightsEosinophils # (Auto)2018-09-16 11:28:00* Test Item Value Reference Range Interpretation Comments Eosinophils # (Auto) (test code = 711-2) 0.0 0.0-0.4 [facility] HeightsBasophils # (Auto)2018-09-16 11:28:00* Test Item Value Reference Range Interpretation Comments Basophils # (Auto) (test code = 704-7) 0.0 0.0-0.1 [facility] HeightsAbsolute Immature Granulocyte (auto 2018-09-16 11:28:00* Test Item Value Reference Range Interpretation Comments Absolute Immature Granulocyte (auto (kisha t code = Absolute Immature Granulocyte (auto) 0.03 0-0.1 [facility]odium Uvqdv4794-30-14 20:51:00* Test Item Value Reference Range Interpretation Comments Sodium Level (test code = 2951-2) 141 136-145 [facility] HeightsPotassium Ssohu9950-36-82 20:51:00* Test Item Value Reference Range Interpretation Comments Potassium Level (test code = 2823-3) 4.3 3.5-5.1 [facility] HeightsChloride Nsnry1651-56-51 20:51:00* Test Item Value Reference Range Interpretation Comments Chloride Level (test code = 2075-0) 104 98-107 [facility] HeightsCarbon Dioxide Rdawb8313-70-78 20:51:00* Test Item Value Reference Range Interpretation Comments Carbon Dioxide Level (test code = 2028-9) 25 22-29 [facility] HeightsAnion Jkt9093-93-27 20:51:00* Test Item Value Reference Range Interpretation Comments Anion Gap (test code = 01398-7) 16.3 8-16 H [facility] HeightsBlood Urea Mbcygfvj7992-18-66 20:51:00* Test Item Value Reference Range Interpretation Comments Blood Urea Nitrogen (test code = 3094-0) 22 7-26 [facility] HeightsCreatinine2019-01-19 20:51:00* Test Item Value Reference Range Interpretation Comments Creatinine (test code = 2160-0) 1.37 0.57-1.11 H [facility] HeightsBUN/Creatinine Gmnyi9762-22-63 20:51:00* Test Item Value Reference Range Interpretation Comments BUN/Creatinine Ratio (test code = 3097-3) 16 6-25 [facility] HeightsEstimat Glomerular Filtration Rate 2018-09-10 20:51:00* Test Item Value Reference Range Interpretation Comments Estimat Glomerular Filtration Rate (test code = 035949090) 46 >60 L Ranges were taken from the National Kidney Disease Education Program and the [facility] literature.Reference ranges:60 or greater: Snwuuf95-52 ( for 3 consecutive months): Chronic kidney disease 15 or less: Kidney failureSeton Medical Center Harker HeightsGlucose Vuwlg0534-95-28 20:51:00* Test Item Value Reference Range Interpretation Comments Glucose Level (test code = LJV5718) 98 74-118 [facility] HeightsCalcium Zoeps6941-01-15 20:51:00* Test Item Value Reference Range Interpretation Comments Calcium Level (test code = 36488-9) 9.2 8.4-10.2 [facility] HeightsTotal Cotuttrei4611-67-20 20:51:00* Test Item Value Reference Range Interpretation Comments Total Bilirubin (test code = 1975-2) 0.2 0.2-1.2 [facility] HeightsAspartate Amino Transf (AST/SGOT) 2018-09-10 20:51:00* Test Item Value Reference Range Interpretation Comments Aspartate Amino Transf (AST/SGOT) (test code = Aspartate Amino Transf (AST/SGOT)) 19 5-34 [facility] HeightsAlanine Aminotransferase (ALT/SGPT) 2018-09-10 20:51:00* Test Item Value Reference Range Interpretation Comments Alanine Aminotransferase (ALT/SGPT) (test code = 1742-6) 18 0-55 [facility] HeightsTotal Fezdxss0840-40-08 20:51:00* Test Item Value Reference Range Interpretation Comments Total Protein (test code = 2885-2) 7.6 6.5-8.1 [facility] HeightsAlbumin2019-01-19 20:51:00* Test Item Value Reference Range Interpretation Comments Albumin (test code = 1751-7) 3.6 3.5-5.0 [facility] HeightsGlobulin2019-01-19 20:51:00* Test Item Value Reference Range Interpretation Comments Globulin (test code = 73361-7) 4.0 2.3-3.5 H [facility] HeightsAlbumin/Globulin Yqume2275-95-30 20:51:00 * Test Item Value Reference Range Interpretation Comments Albumin/Globulin Ratio (test code = 1759-0) 0.9 0.8-2.0 [facility] HeightsAlkaline Sufwzikyfnj8889-67-88 20:51:00* Test Item Value Reference Range Interpretation Comments Alkaline Phosphatase (test code = 6768-6) 124 40-150 [facility] HeightsTotal Jihjlnbir9983-76-36 20:51:00* Test Item Value Reference Range Interpretation Comments Total Bilirubin (test code = 1975-2) 0.2 0.2-1.2 [facility] HeightsAspartate Amino Transf (AST/SGOT) 2018-09-10 20:51:00* Test Item Value Reference Range Interpretation Comments Aspartate Amino Transf (AST/SGOT) (test code = Aspartate Amino Transf (AST/SGOT)) 19 5-34 [facility] HeightsAlanine Aminotransferase (ALT/SGPT) 2018-09-10 20:51:00* Test Item Value Reference Range Interpretation Comments Alanine Aminotransferase (ALT/SGPT) (test code = 1742-6) 18 0-55 [facility] HeightsTotal Gheqwxk7201-93-34 20:51:00* Test Item Value Reference Range Interpretation Comments Total Protein (test code = 2885-2) 7.6 6.5-8.1 [facility] HeightsAlbumin2019-01-19 20:51:00* Test Item Value Reference Range Interpretation Comments Albumin (test code = 1751-7) 3.6 3.5-5.0 [facility] HeightsGlobulin2019-01-19 20:51:00* Test Item Value Reference Range Interpretation Comments Globulin (test code = 61202-3) 4.0 2.3-3.5 H [facility] HeightsAlbumin/Globulin Krrvz3169-04-22 20:51:00 * Test Item Value Reference Range Interpretation Comments Albumin/Globulin Ratio (test code = 1759-0) 0.9 0.8-2.0 [facility] HeightsAlkaline Azonxphymjd7276-94-47 20:51:00* Test Item Value Reference Range Interpretation Comments Alkaline Phosphatase (test code = 6768-6) 124 40-150 [facility] HeightsTotal Jsalaclur8086-30-96 20:51:00* Test Item Value Reference Range Interpretation Comments Total Bilirubin (test code = 1975-2) 0.2 0.2-1.2 [facility] HeightsAspartate Amino Transf (AST/SGOT) 2018-09-10 20:51:00* Test Item Value Reference Range Interpretation Comments Aspartate Amino Transf (AST/SGOT) (test code = Aspartate Amino Transf (AST/SGOT)) 19 5-34 [facility] HeightsAlanine Aminotransferase (ALT/SGPT) 2018-09-10 20:51:00* Test Item Value Reference Range Interpretation Comments Alanine Aminotransferase (ALT/SGPT) (test code = 1742-6) 18 0-55 [facility] HeightsTotal Yyzmhow0215-68-82 20:51:00* Test Item Value Reference Range Interpretation Comments Total Protein (test code = 2885-2) 7.6 6.5-8.1 [facility] HeightsAlbumin2019-01-19 20:51:00* Test Item Value Reference Range Interpretation Comments Albumin (test code = 1751-7) 3.6 3.5-5.0 [facility] HeightsGlobulin2019-01-19 20:51:00* Test Item Value Reference Range Interpretation Comments Globulin (test code = 09219-5) 4.0 2.3-3.5 H [facility] HeightsAlbumin/Globulin Tfkxs2662-84-12 20:51:00 * Test Item Value Reference Range Interpretation Comments Albumin/Globulin Ratio (test code = 1759-0) 0.9 0.8-2.0 [facility] HeightsAlkaline Utvwwfqfgno2174-05-61 20:51:00* Test Item Value Reference Range Interpretation Comments Alkaline Phosphatase (test code = 6768-6) 124 40-150 [facility] HeightsWhite Blood Vsizd1259-76-73 20:29:00* Test Item Value Reference Range Interpretation Comments White Blood Count (test code = 6690-2) 6.38 4.8-10.8 [facility] HeightsRed Blood Ezssf6612-95-15 20:29:00* Test Item Value Reference Range Interpretation Comments Red Blood Count (test code = 789-8) 3.95 3.6-5.1 [facility] HeightsHemoglobin2019-01-19 20:29:00* Test Item Value Reference Range Interpretation Comments Hemoglobin (test code = 36896-9) 11.8 12.0-16.0 L [facility] HeightsHematocrit2019-01-19 20:29:00* Test Item Value Reference Range Interpretation Comments Hematocrit (test code = 4544-3) 36.5 34.2-44.1 [facility] Corpuscular Foibmy0208-71-43 20:29:00* Test Item Value Reference Range Interpretation Comments Mean Corpuscular Volume (test code = 787-2) 92.4 81-99 [facility]Mean Corpuscular Athmwhgzgw5088-57-90 20:29:00* Test Item Value Reference Range Interpretation Comments Mean Corpuscular Hemoglobin (test code = 785-6) 29.9 28-32 [facility] Corpuscular Hemoglobin Concent 2018-09-10 20:29:00* Test Item Value Reference Range Interpretation Comments Mean Corpuscular Hemoglobin Concent (test code = 786-4) 32.3 31-35 [facility] HeightsRed Cell Distribution Gtgrk3479-05-76 20:29:00* Test Item Value Reference Range Interpretation Comments Red Cell Distribution Width (test code = 36879-5) 15.4 11.7 -14.4 H [facility] HeightsPlatelet Ibabj4994-83-94 20:29:00* Test Item Value Reference Range Interpretation Comments Platelet Count (test code = 777-3) 213 140-360 [facility] HeightsNeutrophils (%) (Auto)2018-09-10 20:29:00 * Test Item Value Reference Range Interpretation Comments Neutrophils (%) (Auto) (test code = 38858-4) 63.6 38.7-80.0 [facility] HeightsLymphocytes (%) (Auto)2018-09-10 20:29:00 * Test Item Value Reference Range Interpretation Comments Lymphocytes (%) (Auto) (test code = 736-9) 28.7 18.0-39.1 [facility] Heights[facility]ocytes (%) (Auto)2018-09-10 20:29:00* Test Item Value Reference Range Interpretation Comments Monocytes (%) (Auto) (test code = 5905-5) 5.8 4.4-11.3 [facility]Eosinophils (%) (Auto)2018-09-10 20:29:00 * Test Item Value Reference Range Interpretation Comments Eosinophils (%) (Auto) (test code = 713-8) 0.9 0.0-6.0 [facility]ophils (%) (Auto)2018-09-10 20:29:00* Test Item Value Reference Range Interpretation Comments Basophils (%) (Auto) (test code = 706-2) 0.5 0.0-1.0 [facility] HeightsIM GRANULOCYTES %2018-09-10 20:29:00* Test Item Value Reference Range Interpretation Comments IM GRANULOCYTES % (test code = IM GRANULOCYTES %) 0.5 0.0- 1.0 [facility] HeightsNeutrophils # (Auto)2018-09-10 20:29:00* Test Item Value Reference Range Interpretation Comments Neutrophils # (Auto) (test code = 751-8) 4.1 2.1-6.9 [facility] HeightsLymphocytes # (Auto)2018-09-10 20:29:00* Test Item Value Reference Range Interpretation Comments Lymphocytes # (Auto) (test code = 85406-1) 1.8 1.0-3.2 [facility] HeightsMonocytes # (Auto)2018-09-10 20:29:00* Test Item Value Reference Range Interpretation Comments Monocytes # (Auto) (test code = 742-7) 0.4 0.2-0.8 [facility]Eosinophils # (Auto)2018-09-10 20:29:00* Test Item Value Reference Range Interpretation Comments Eosinophils # (Auto) (test code = 711-2) 0.1 0.0-0.4 [facility]Basophils # (Auto)2018-09-10 20:29:00* Test Item Value Reference Range Interpretation Comments Basophils # (Auto) (test code = 704-7) 0.0 0.0-0.1 [facility] HeightsAbsolute Immature Granulocyte (auto 2018-09-10 20:29:00* Test Item Value Reference Range Interpretation Comments Absolute Immature Granulocyte (auto (kisha t code = Absolute Immature Granulocyte (auto) 0.03 0-0.1 [facility] HeightsCT MAXIO FAC/PARANAS [id number] 19:54:00 [place] [address] Patient Name: MARIN CRABTREE MR #: [id number] : 1945 Age/Sex: 73/F Req #: [id number] Adm Physician: Ordered by: SKY ABREU MD Report #: [id number] Location: ER Room/Bed: Procedure: [id number] CT/CT MAXIO FAC/PARANAS WO Exam Date: 09/10/18 Exam Time: 1948 REPORT STATUS: Signed Exams: Head and maxillofacial CTs without IV contrast History: Left facial p ain, prior trigeminal neuralgia surgery, hypertension, EKG. Comparison studi es: Head CT 07/06/2017. Technique: Axial images were obtained to the vert ex and maxillofacial region. Coronal and sagittal images reconstructed from th e axial data. Dose modulation, iterative reconstruction, and/or weight based a djustment of the mA/kV was utilized to reduce the radiation dose to as low as reasonably achievable. Intravenous contrast: None Findings: Scalp: No abnormalities. Bones: No fractures, blastic or lytic lesions. Brain westfall lci: Appropriate for age. Ventricles: Normal in size and configuration. No hyd rocephalus. Parenchyma: No mass, acute hemorrhage or acute or chronic co rtical vascular insults. A few scattered hypodensities in the supratentorial w noah matter are nonspecific but most compatible with chronic microvascular isc hemic changes. Sellar/suprasellar region: Mildly expanded mostly CSF fille d sella ("empty sella"), a nonspecific finding. Is mild optic nerve tortuosity as well as probably mild increased CSF within the optic nerve sheaths. Compil ation of findings can be seen in patients with idiopathic intracranial hyperte nsion in the proper clinical setting. Craniocervical junction: Patent for amen magnum. No Chiari one malformation. Maxillofacial CT: Soft tissu es: No abnormalities. Bones: No fractures or bony abnormalities. Orbits: Mild vertical tortuosity of the optic nerves as well as possible m ild increased CSF within the optic nerve sheath as described. No other abnorma lities. Paranasal sinuses: Right sphenoid sinus is partially opacified wi th mucosal thickening and layering fluid/secretions. Remaining sinuses are carley ar. Included cervical spine: Cervical kyphotic curvature with varying de grees of mild to moderate disc degeneration from C2 to C6. Disc osteophyte com plexes from C3 to C6 indent the thecal sac. Moderate foraminal stenosis bilate rally at C3-C4 C4-C5 and at C5-C6 due to uncovertebral arthrosis. Inciden liana findings: * Intracranial and extracranial bilateral carotid artery calcif ied atherosclerosis.. * Possible 1.6 cm hypodense nodule or cyst in the lef t thyroid gland. * Torus palatinus. * Degenerative changes at the right te mporal mandibular joint with right mandibular condyle subcondylar cyst formati on. IMPRESSION: Head CT: 1. No acute intracranial abnormalities. 2. Mild chronic microvascular ischemic changes. 3. Unchanged empty sella wi th additional ancillary findings which can be seen with idiopathic intracrania l hypertension in the appropriate clinical setting. Moreover, this diagnosis w ould be somewhat unusual in a patient of this age. Findings can be correlated clinically. Maxillofacial CT: 1. Right sphenoid sinusitis. 2. No othe r acute intracranial abnormalities. Signed by: Dr. Brock De Jesus M.D. on 8:16 PM Dictated By: BROCK DE JESUS MD 15 Transcribed By: SEBASTIAN on 09/10/182015 COPY TO: SKY ABREU MD CT BRAIN [id number] 19:54:00 [place] [address] Patient Name: MARIN CRABTREE MR #: [id number] : 1945 Age/Sex: 73/F Req #: [id number] Adm Physician: Ordered by: SKY ABREU MD Report #: [id number] Location: ER Room/Bed: Procedure: [id number] CT/CT BRAIN WO Exam Date: 09/10/18 Exam Time: 1948 REPORT STATUS: Signed Exams: Hea d and maxillofacial CTs without IV contrast History: Left facial pain, prior t rigeminal neuralgia surgery, hypertension, EKG. Comparison studies: Head CT 07/06/2017. Technique: Axial images were obtained to the vertex and maxil lofacial region. Coronal and sagittal images reconstructed from the axial data . Dose modulation, iterative reconstruction, and/or weight based adjustment of the mA/kV was utilized to reduce the radiation dose to as low as reasonably a chievable. Intravenous contrast: None Findings: Scalp: No abnormali ties. Bones: No fractures, blastic or lytic lesions. Brain sulci: Appropr iate for age. Ventricles: Normal in size and configuration. No hydrocephalus. Parenchyma: No mass, acute hemorrhage or acute or chronic cortical vascu lar insults. A few scattered hypodensities in the supratentorial white matter are nonspecific but most compatible with chronic microvascular ischemic change s. Sellar/suprasellar region: Mildly expanded mostly CSF filled sella ("em pty sella"), a nonspecific finding. Is mild optic nerve tortuosity as well as probably mild increased CSF within the optic nerve sheaths. Compilation of f indings can be seen in patients with idiopathic intracranial hypertension in t he proper clinical setting. Craniocervical junction: Patent foramen magnum. No Chiari one malformation. Maxillofacial CT: Soft tissues: No ab normalities. Bones: No fractures or bony abnormalities. Orbits: Mild vertical tortuosity of the optic nerves as well as possible mild increase d CSF within the optic nerve sheath as described. No other abnormalities. Paranasal sinuses: Right sphenoid sinus is partially opacified with mucosal t hickening and layering fluid/secretions. Remaining sinuses are clear. Inc luded cervical spine: Cervical kyphotic curvature with varying degrees of mil d to moderate disc degeneration from C2 to C6. Disc osteophyte complexes from C3 to C6 indent the thecal sac. Moderate foraminal stenosis bilaterally at C3- C4 C4-C5 and at C5-C6 due to uncovertebral arthrosis. Incidental findings : * Intracranial and extracranial bilateral carotid artery calcified athero sclerosis.. * Possible 1.6 cm hypodense nodule or cyst in the left thyroid gl and. * Torus palatinus. * Degenerative changes at the right temporal farideh bular joint with right mandibular condyle subcondylar cyst formation. IMP RESSION: Head CT: 1. No acute intracranial abnormalities. 2. Mild ch ronic microvascular ischemic changes. 3. Unchanged empty sella with additiona l ancillary findings which can be seen with idiopathic intracranial hypertensi on in the appropriate clinical setting. Moreover, this diagnosis would be some what unusual in a patient of this age. Findings can be correlated clinically. Maxillofacial CT: 1. Right sphenoid sinusitis. 2. No other acute intr acranial abnormalities. Signed by: Dr. Brock De Jesus M.D. on 09/10/2018 8:1 6 PM Dictated By: BROCK DE JESUS MD 15 Transcribed By: SEBASTIAN on 09/10/182015 COPY TO: SKY ABREU MD CT CHEST [id number] 12:36:00 [place] [address] Patient Name: MARIN CRABTREE MR #: [id number] : 1945 Age/Sex: 72/F Req #: [id number] Adm Physician: Ordered by: CONNER RONDON MD Report #: [id number] Location: CT Room/Bed: Procedure: [id number] CT/CT CHEST WO Exam Date: 06/01/18 Exam Time: 1100 REPORT STATUS: Signed EXAM: CT Chest WITHOUT contrast INDICATION: COPD/bronchitis COMPARISON: None. TECHNIQUE: The Chest was scanned utilizing a multidetector helical scanner without the use of IV contrast. Coronal and sagittal reformations were obtained. Reformatted axial MIP images were obtained and reviewed. IV CONTRAST: None COMPLICATIONS: None RADIATION DOSE: Total DLP: 258 mGy*cm Estimated effective dose: (DLP x 0.01 5 x size factor) mSv CTDIvol has been reviewed. It is below the limits se t by the Radiation Protocol Committee (RPC). Appropriate CT dose reduction bina hniques were utilized. FINDINGS: Lines and Tubes: None. Lower Neck: 13 mm nodule left thyroid lobe. Heart and Great Vessels: The aorta a nd main pulmonary artery measure 42 and 33 mm. respectively. No pericardial e ffusion. Mild to moderate aortic and coronary artery vascular calcifications. Lymph Nodes: Scattered small mediastinal lymph nodes, not distinctly enlar ged by size criteria. The hilar regions are sub-optimally evaluated given lack of IV contrast. Lungs: Mild biapical scarring. There is a diverticulum of the trachea posterior laterally on the right near the cervicothoracic junct ion. No pneumothorax or pleural effusion is present. The trachea and central b ronchi are otherwise unremarkable. There is mild septal thickening in the lung bases. Atelectasis in the right middle lobe and lingula noted. Minimal ground glass opacities in the lung bases are present. There are a few tiny 1 to 2 mm pleural and parenchymal nodules, of doubtful clinical significance. Upper abdomen: Cholecystectomy clips. Left adrenal adenoma measuring 49 x 21 mm. Bones and Soft Tissues: Sternotomy wires. IMPRESSION: 1. Minimal s eptal thickening and groundglass opacities in the lung bases can be seen in th e setting of minimal edema, with infectious or inflammatory processes not excl uded. 2. Left adrenal adenoma. 3. Left thyroid nodule. Dedicated ult rasound recommended. 4. 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 Signed by: Dr. Samir Galaviz MD on 06/01/2018 12:40 PM Dictated By: SAMIR GALAVIZ MD 1240 Transcribed By: KENDALL BOCANEGRA on 06/01/18 1240 COPY TO: CONNER RONDON MD CT ABDOMEN/PELVIS [id number] 20:42:00 [place] [address] Patient Name: MARIN CRABTREE MR #: [id number] : 1945 Age/Sex: 72/F Req #: [id number] Adm Physician: Ordered by: WILBERT DELGADO [employer] Report #: [id number] Location: ER Room/Bed: Procedure: [id number] CT/CT ABDOMEN/PELVIS WO Exam Date: 02/27/18 Exam Time: 2029 REPORT STATUS: S igned ADDENDUM #1 Dose modulation, iterative recons truction, and/or weight based adjustment of the mA/kV was utilized to reduce t he radiation dose to as low as reasonably achievable. Signed by: Dr. Juliette Willson M.D. on 04/19/2018 5:33 AM ORIGINAL REPORT EXAM: CT ABDOMEN AND PELVIS without IV CONTRAST INDICATION: Abdominal pain, bloating, shortness of breath COMPARISON: CT of the abdomen and pelvis March 06, 2017 TECHNIQUE: The abdomen and pelvis were scanned using a multidetector helical scanner. Coronal and sagittal reformations were obtained. Routine prot ocol performed. IV Contrast: None Oral Contrast: Gastrografin CTDIvol dhaliwal s been reviewed. It is below the limits set by the Radiation Protocol Committe e (RPC). FINDINGS: LOWER THORAX: No consolidations LIVER: No masses BILIARY: Cholecystectomy without ductal dilation. SPLEEN: No masses PA NCREAS: No masses ADRENALS: Stable 5 cm x 1.8 cm left adrenal gland adenoma . Stable mild thickening of the right adrenal gland. RIGHT KIDNEY: No nep hroureterolithiasis or hydronephrosis. LEFT KIDNEY: No nephroureterolithia sis or hydronephrosis. GI TRACT: No wall thickening or obstruction. Sigmoid colon diverticulosis. The appendix is not identified. No inflammatory changes in the right lower quadrant of the abdomen to suspect acute appendicitis VESSELS: Mild atherosclerotic changes of the abdominal aorta without aneurysm. PERITONEUM/RETROPERITONEUM: No free air or fluid LYMPH NODES: No lymphadeno andry REPRODUCTIVE ORGANS: The uterus and ovaries are not visualized. DARREL DDER: Normal SOFT TISSUES: Normal BONES: No suspicious bone lesions. IMPRESSION: Marked sigmoid colon diverticulosis without CT findings of acute diverticulitis. No bowel obstruction. Signed by: Dr. Juliette Willson M.D. on 02/27/2018 8:49 PM Dictated By: JULIETTE WILLSON MD Electronically S igned By: JULIETTE WILLSON MD on 04/19/1833 Transcribed By: SEBASTIAN on 02/27/182048 COPY TO: WILBERT DELGADO NP Creatine Kinase [id number] 19:29:00* Test Item Value Reference Range Interpretation Comments Creatine Kinase MB (test code = 79395-9) 2.10 0-5.0 [place] [id number] 19:29:00* Test Item Value Reference Range Interpretation Comments Troponin I (test code = DOL7366) 0.016 0-0.300 [facility] HeightsCreatine Kinase [id number] 19:29:00* Test Item Value Reference Range Interpretation Comments Creatine Kinase MB (test code = 44961-8) 2.10 0-5.0 [place] [id number] 19:29:00* Test Item Value Reference Range Interpretation Comments Troponin I (test code = UXM0659) 0.016 0-0.300 [facility] HeightsCreatine Kinase [id number] 19:29:00* Test Item Value Reference Range Interpretation Comments Creatine Kinase MB (test code = 28795-3) 2.10 0-5.0 [place] [id number] 19:29:00* Test Item Value Reference Range Interpretation Comments Troponin I (test code = ALB1378) 0.016 0-0.300 [facility]B-Type Natriuretic Btmtwwb3206-23-25 19:23:00* Test Item Value Reference Range Interpretation Comments B-Type Natriuretic Peptide (test code = 69794-5) 490.4 0-100 H [facility] HeightsB-Type Natriuretic Doxrdpo4334-26-95 19:23:00* Test Item Value Reference Range Interpretation Comments B-Type Natriuretic Peptide (test code = 01520-9) 490.4 0-100 H [facility]B-Type Natriuretic Qabqxbs8347-06-28 19:23:00* Test Item Value Reference Range Interpretation Comments B-Type Natriuretic Peptide (test code = 37285-7) 490.4 0-100 [facility] Uizth6723-46-48 19:22:00* Test Item Value Reference Range Interpretation Comments Sodium Level (test code = 2951-2) 140 136-145 [facility]Potassium Lssup2735-21-07 19:22:00* Test Item Value Reference Range Interpretation Comments Potassium Level (test code = 2823-3) 3.5 3.5-5.1 [facility] HeightsChloride Dhdpg2033-72-42 19:22:00* Test Item Value Reference Range Interpretation Comments Chloride Level (test code = 2075-0) 106 98-107 [facility] HeightsCarbon Dioxide Bypqc3189-52-95 19:22:00* Test Item Value Reference Range Interpretation Comments Carbon Dioxide Level (test code = 2028-9) 24 22-29 [facility] HeightsAnion Qeq1579-53-57 19:22:00* Test Item Value Reference Range Interpretation Comments Anion Gap (test code = 18045-5) 13.5 8-16 [facility] HeightsBlood Urea Oaqinqev5314-65-39 19:22:00* Test Item Value Reference Range Interpretation Comments Blood Urea Nitrogen (test code = 3094-0) 19 7-26 [facility] HeightsCreatinine2018-07-08 19:22:00* Test Item Value Reference Range Interpretation Comments Creatinine (test code = 2160-0) 1.59 0.57-1.11 H [facility] HeightsBUN/Creatinine Oomat3475-94-94 19:22:00* Test Item Value Reference Range Interpretation Comments BUN/Creatinine Ratio (test code = 3097-3) 12 6-25 [facility] HeightsEstimat Glomerular Filtration Rate 2018-02-27 19:22:00* Test Item Value Reference Range Interpretation Comments Estimat Glomerular Filtration Rate (test code = 35792-2) 39 >60 L Ranges were taken from the National Kidney Disease Education Program and the [facility] literature.Reference ranges:60 or greater: Kjnbzb61-93 ( for 3 consecutive months): Chronic kidney disease 15 or less: Kidney failureSet[facility]arker HeightsGlucose Qmiiu1646-27-97 19:22:00* Test Item Value Reference Range Interpretation Comments Glucose Level (test code = CSU1753) 98 74-118 [facility] HeightsCalcium Ppqkl1834-57-99 19:22:00* Test Item Value Reference Range Interpretation Comments Calcium Level (test code = 50015-4) 9.6 8.4-10.2 [facility] HeightsMagnesium Rshmx7496-16-42 19:22:00* Test Item Value Reference Range Interpretation Comments Magnesium Level (test code = 36471-8) 1.8 1.3-2.1 [facility] HeightsTotal Rmrpfujmd7976-95-79 19:22:00* Test Item Value Reference Range Interpretation Comments Total Bilirubin (test code = 1975-2) 0.3 0.2-1.2 [facility] HeightsAspartate Amino Transf (AST/SGOT) 2018-02-27 19:22:00* Test Item Value Reference Range Interpretation Comments Aspartate Amino Transf (AST/SGOT) (test code = Aspartate Amino Transf (AST/SGOT)) 17 5-34 [facility] HeightsAlanine Aminotransferase (ALT/SGPT) 2018-02-27 19:22:00* Test Item Value Reference Range Interpretation Comments Alanine Aminotransferase (ALT/SGPT) (test code = 1742-6) 11 0-55 [facility] HeightsTotal Lroubaj9362-89-25 19:22:00* Test Item Value Reference Range Interpretation Comments Total Protein (test code = 2885-2) 7.4 6.5-8.1 [facility] HeightsAlbumin2018-07-08 19:22:00* Test Item Value Reference Range Interpretation Comments Albumin (test code = 1751-7) 3.7 3.5-5.0 [facility] HeightsGlobulin2018-07-08 19:22:00* Test Item Value Reference Range Interpretation Comments Globulin (test code = 89250-2) 3.7 2.3-3.5 H [facility] HeightsAlbumin/Globulin Xwzva3184-09-50 19:22:00 * Test Item Value Reference Range Interpretation Comments Albumin/Globulin Ratio (test code = 1759-0) 1.0 0.8-2.0 [facility] HeightsAlkaline Ygobuwxcaxs0821-05-27 19:22:00* Test Item Value Reference Range Interpretation Comments Alkaline Phosphatase (test code = 6768-6) 98 40-150 [facility] HeightsCreatine Wzfpvg4512-19-52 19:22:00* Test Item Value Reference Range Interpretation Comments Creatine Kinase (test code = 2157-6) 129 29-168 [facility] HeightsAmylase Jzpgh5978-16-82 19:22:00* Test Item Value Reference Range Interpretation Comments Amylase Level (test code = 1798-8) 58 25-125 [facility] HeightsLipase2018-07-08 19:22:00* Test Item Value Reference Range Interpretation Comments Lipase (test code = 3040-3) 14 [facility] HeightsMagnesium Vxkiv2865-35-14 19:22:00* Test Item Value Reference Range Interpretation Comments Magnesium Level (test code = 96686-8) 1.8 1.3-2.1 [facility] HeightsCreatine Agesfg9871-22-42 19:22:00* Test Item Value Reference Range Interpretation Comments Creatine Kinase (test code = 2157-6) 129 29-168 [facility] HeightsAmylase Ghfrg8337-79-15 19:22:00* Test Item Value Reference Range Interpretation Comments Amylase Level (test code = 1798-8) 58 25-125 [facility] HeightsLipase2018-07-08 19:22:00* Test Item Value Reference Range Interpretation Comments Lipase (test code = 3040-3) 14 78 [facility] HeightsMagnesium Tktjt7035-30-38 19:22:00* Test Item Value Reference Range Interpretation Comments Magnesium Level (test code = 12782-7) 1.8 1.3-2.1 [facility] HeightsCreatine Evyovh1784-95-63 19:22:00* Test Item Value Reference Range Interpretation Comments Creatine Kinase (test code = 2157-6) 129 29-168 [facility] HeightsAmylase Oatmp2274-99-37 19:22:00* Test Item Value Reference Range Interpretation Comments Amylase Level (test code = 1798-8) 58 25-125 [facility] HeightsLipase2018-07-08 19:22:00* Test Item Value Reference Range Interpretation Comments Lipase (test code = 3040-3) 14 8-78 [facility] HeightsCHEST SINGLE (PORTABLE)2018-02-27 19:22:00 [facility] [address] [place] [address] Patient Name: MARIN CRABTREE MR #: [id number] : 1945 Age/Sex: 72/F Req #: [id number] Adm Physician: Ordered by: WILBERT DELGADO [employer] Report #: [id number] Location: ER Room/Bed: Procedure: [id number] DX/CHEST SINGLE (PORTABLE) Ex am Date: 02/27/18 Exam Time: 1900 REPORT STATUS : Signed EXAM: CHEST SINGLE (PORTABLE), AP 1 view INDICATION: Abdominal hannah n, bloating COMPARISON: AP view of the chest July 06, 2017 FINDINGS: LINES/TUBES: None LUNGS: No consolidations or edema. PLEURA: No eff usions or pneumothorax. HEART AND MEDIASTINUM: Normal size and contour. Sta ble median sternotomy wires. BONES AND SOFT TISSUES: No acute findings. IMPRESSION: No acute thoracic abnormality. Signed by: Dr. Juliette Willson M.D. on 02/27/2018 7:26 PM Dictated By: JULIETTE WILLSON MD Elec tronically Signed By: JULIETTE WILLSON MD on 02/27/181925 Transcribed By: SEBASTIAN islas 02/27/181925 COPY TO: WILBERT DELGADO NP Prothrombin Time 2018-02-27 19:19:00* Test Item Value Reference Range Interpretation Comments Prothrombin Time (test code = 5902-2) 13.0 11.9-14.5 [facility] HeightsProthromb Time International Ratio 2018-02-27 19:19:00* Test Item Value Reference Range Interpretation Comments Prothromb Time International Ratio (test code = 6301-6) 1.06 Oral Anticoagulant Therapy INR Values:1. Low Intensity Therapy 1.5 - 2.02 . Moderate Intensity Therapy 2.0 - 3.03. High Intensity Therapy(1) 2.5 - 3. 54. High Intensity Therapy(2) 3.0 - 4.05. Panic Value INR > 5.0 [facility] HeightsActivated Partial Thromboplast Time 2018-02-27 19:19:00* Test Item Value Reference Range Interpretation Comments Activated Partial Thromboplast Time (test code = 22469-9) 29.9 23.8-35.5 [facility] HeightsProthrombin [id number] 19:19:00* Test Item Value Reference Range Interpretation Comments Prothrombin Time (test code = 5902-2) 13.0 11.9-14.5 [facility]th[facility] International Ratio 2018-02-27 19:19:00* Test Item Value Reference Range Interpretation Comments Prothromb Time International Ratio (test code = 6301-6) 1.06 Oral Anticoagulant Therapy INR Values:1. Low Intensity Therapy 1.5 - 2.02 . Moderate Intensity Therapy 2.0 - 3.03. High Intensity Therapy(1) 2.5 - 3. 54. High Intensity Therapy(2) 3.0 - 4.05. Panic Value INR > 5.0 [facility] Partial Thromboplast Time 2018-02-27 19:19:00* Test Item Value Reference Range Interpretation Comments Activated Partial Thromboplast Time (test code = 40360-4) 29.9 23.8-35.5 [facility] HeightsProthrombin Dfvj1473-32-93 19:19:00* Test Item Value Reference Range Interpretation Comments Prothrombin Time (test code = 5902-2) 13.0 11.9-14.5 [facility] HeightsProthromb Time International Ratio 2018-02-27 19:19:00* Test Item Value Reference Range Interpretation Comments Prothromb Time International Ratio (test code = 6301-6) 1.06 Oral Anticoagulant Therapy INR Values:1. Low Intensity Therapy 1.5 - 2.02 . Moderate Intensity Therapy 2.0 - 3.03. High Intensity Therapy(1) 2.5 - 3. 54. High Intensity Therapy(2) 3.0 - 4.05. Panic Value INR > 5.0 [facility] Partial Thromboplast Time 2018-02-27 19:19:00* Test Item Value Reference Range Interpretation Comments Activated Partial Thromboplast Time (test code = 27419-1) 29.9 23.8-35.5 [facility] Heights[facility] Mjmyc9688-08-30 19:10:00* Test Item Value Reference Range Interpretation Comments Urine Color (test code = 5778-6) YELLOW YELLOW [facility] Pnhlrdi8404-74-75 19:10:00* Test Item Value Reference Range Interpretation Comments Urine Clarity (test code = 89249-1) CLEAR CLEAR [facility] Heights[facility] Specific Ningdlt4663-64-98 19:10:00 * Test Item Value Reference Range Interpretation Comments Urine Specific Newcomb (test code = 5811-5) 1.005 1.010-1.02 5 L [facility] [id number] 19:10:00* Test Item Value Reference Range Interpretation Comments Urine pH (test code = 83664-6) 6 5-7 [facility] Leukocyte Ysxvhwem4617-28-11 19:10:00* Test Item Value Reference Range Interpretation Comments Urine Leukocyte Esterase (test code = 5799-2) NEGATIVE NEGATIVE [facility] Urllmrl5214-43-19 19:10:00* Test Item Value Reference Range Interpretation Comments Urine Nitrite (test code = 07806-8) NEGATIVE NEGATIVE [facility] Luiltbp3073-67-48 19:10:00* Test Item Value Reference Range Interpretation Comments Urine Protein (test code = 5804-0) NEGATIVE NEGATIVE [facility] Glucose (UA)2018-02-27 19:10:00* Test Item Value Reference Range Interpretation Comments Urine Glucose (UA) (test code = 2349-9) NEGATIVE NEGATIVE [facility] Isixory0474-62-53 19:10:00* Test Item Value Reference Range Interpretation Comments Urine Ketones (test code = 26438-5) NEGATIVE NEGATIVE [facility] Fckotulebfoh6455-37-79 19:10:00* Test Item Value Reference Range Interpretation Comments Urine Urobilinogen (test code = 72349-7) 0.2 0.2-1 [facility] Jqgspzbil9892-97-42 19:10:00* Test Item Value Reference Range Interpretation Comments Urine Bilirubin (test code = 1978-6) NEGATIVE NEGATIVE [facility] Fovtd5121-13-24 19:10:00* Test Item Value Reference Range Interpretation Comments Urine Blood (test code = 94744-7) NEGATIVE NEGATIVE [facility] QRI7072-95-08 19:10:00* Test Item Value Reference Range Interpretation Comments Urine WBC (test code = 5821-4) 0-5 0-5 [facility] EPL6645-70-92 19:10:00* Test Item Value Reference Range Interpretation Comments Urine RBC (test code = 95242-1) 0-5 0-5 [facility] Lmmmuffd9494-04-48 19:10:00* Test Item Value Reference Range Interpretation Comments Urine Bacteria (test code = 28546-5) RARE NONE [facility] Epithelial Hlyam9283-55-53 19:10:00 * Test Item Value Reference Range Interpretation Comments Urine Epithelial Cells (test code = 07448-6) FEW NONE [facility] Hyaline Ukgii8492-88-63 19:10:00* Test Item Value Reference Range Interpretation Comments Urine Hyaline Casts (test code = 97739-6) 0-1 0-1 [facility] Cjzwh6530-77-07 19:10:00* Test Item Value Reference Range Interpretation Comments Urine Color (test code = 5778-6) YELLOW YELLOW [facility] Zglfbpd8543-14-60 19:10:00* Test Item Value Reference Range Interpretation Comments Urine Clarity (test code = 78645-0) CLEAR CLEAR [facility] Specific Offnawv3529-69-78 19:10:00 * Test Item Value Reference Range Interpretation Comments Urine Specific Newcomb (test code = 5811-5) 1.005 1.010-1.02 5 L [facility] nF0403-50-64 19:10:00* Test Item Value Reference Range Interpretation Comments Urine pH (test code = 64266-8) 6 5-7 [facility] Leukocyte Hjhjxkyq8015-35-35 19:10:00* Test Item Value Reference Range Interpretation Comments Urine Leukocyte Esterase (test code = 5799-2) NEGATIVE NEGATIVE [facility] Mtunxmg0826-66-59 19:10:00* Test Item Value Reference Range Interpretation Comments Urine Nitrite (test code = 05207-3) NEGATIVE NEGATIVE [facility] Heksgfh0620-60-78 19:10:00* Test Item Value Reference Range Interpretation Comments Urine Protein (test code = 5804-0) NEGATIVE NEGATIVE [facility] Glucose (UA)2018-02-27 19:10:00* Test Item Value Reference Range Interpretation Comments Urine Glucose (UA) (test code = 2349-9) NEGATIVE NEGATIVE [facility] Tlitdpa2044-21-52 19:10:00* Test Item Value Reference Range Interpretation Comments Urine Ketones (test code = 26869-1) NEGATIVE NEGATIVE [facility] Gugxjldmzzvb0638-81-95 19:10:00* Test Item Value Reference Range Interpretation Comments Urine Urobilinogen (test code = 31565-3) 0.2 0.2-1 [facility] Olvuuoyha1611-16-63 19:10:00* Test Item Value Reference Range Interpretation Comments Urine Bilirubin (test code = 1978-6) NEGATIVE NEGATIVE [facility] Gaguu6779-77-84 19:10:00* Test Item Value Reference Range Interpretation Comments Urine Blood (test code = 27639-0) NEGATIVE NEGATIVE [facility] [id number] 19:10:00* Test Item Value Reference Range Interpretation Comments Urine WBC (test code = 5821-4) 0-5 0-5 [facility] [id number] 19:10:00* Test Item Value Reference Range Interpretation Comments Urine RBC (test code = 81713-2) 0-5 0-5 [facility] Ootvnrvc2872-15-39 19:10:00* Test Item Value Reference Range Interpretation Comments Urine Bacteria (test code = 57782-7) RARE NONE [facility] Epithelial Ekdnz6710-58-68 19:10:00 * Test Item Value Reference Range Interpretation Comments Urine Epithelial Cells (test code = 75032-8) FEW NONE [facility] Hyaline Momhe0530-56-56 19:10:00* Test Item Value Reference Range Interpretation Comments Urine Hyaline Casts (test code = 27567-2) 0-1 0-1 [facility] Bxxtv4883-47-67 19:10:00* Test Item Value Reference Range Interpretation Comments Urine Color (test code = 5778-6) YELLOW YELLOW [facility] Vadedpk7442-10-67 19:10:00* Test Item Value Reference Range Interpretation Comments Urine Clarity (test code = 86358-9) CLEAR CLEAR [facility] Specific Ppvuzfc9341-90-86 19:10:00 * Test Item Value Reference Range Interpretation Comments Urine Specific Newcomb (test code = 5811-5) 1.005 1.010-1.02 5 L [facility] [id number] 19:10:00* Test Item Value Reference Range Interpretation Comments Urine pH (test code = 51167-2) 6 5-7 [facility] Leukocyte Luxznamt2063-69-93 19:10:00* Test Item Value Reference Range Interpretation Comments Urine Leukocyte Esterase (test code = 5799-2) NEGATIVE NEGATIVE [facility] Nlfuawm0651-21-79 19:10:00* Test Item Value Reference Range Interpretation Comments Urine Nitrite (test code = 06047-7) NEGATIVE NEGATIVE [facility] Vdqphfq3247-28-86 19:10:00* Test Item Value Reference Range Interpretation Comments Urine Protein (test code = 5804-0) NEGATIVE NEGATIVE [facility] Glucose (UA)2018-02-27 19:10:00* Test Item Value Reference Range Interpretation Comments Urine Glucose (UA) (test code = 2349-9) NEGATIVE NEGATIVE [facility] Ahkvyjz8641-32-24 19:10:00* Test Item Value Reference Range Interpretation Comments Urine Ketones (test code = 07121-4) NEGATIVE NEGATIVE [facility] Fywwcnvsjjtk9793-53-79 19:10:00* Test Item Value Reference Range Interpretation Comments Urine Urobilinogen (test code = 25471-7) 0.2 0.2-1 [facility] Jmqwrcqfq6094-82-87 19:10:00* Test Item Value Reference Range Interpretation Comments Urine Bilirubin (test code = 1978-6) NEGATIVE NEGATIVE [facility] Pwmdr5853-23-55 19:10:00* Test Item Value Reference Range Interpretation Comments Urine Blood (test code = 99789-4) NEGATIVE NEGATIVE [facility] TEA4555-20-26 19:10:00* Test Item Value Reference Range Interpretation Comments Urine WBC (test code = 5821-4) 0-5 0-5 [facility] JHU0803-01-07 19:10:00* Test Item Value Reference Range Interpretation Comments Urine RBC (test code = 45705-0) 0-5 0-5 [facility] Zztrqhhd3244-62-86 19:10:00* Test Item Value Reference Range Interpretation Comments Urine Bacteria (test code = 29219-6) RARE NONE [facility] Epithelial Edmrf1824-62-00 19:10:00 * Test Item Value Reference Range Interpretation Comments Urine Epithelial Cells (test code = 15221-6) FEW NONE [facility] Hyaline Mqncd2624-11-14 19:10:00* Test Item Value Reference Range Interpretation Comments Urine Hyaline Casts (test code = 68446-7) 0-1 0-1 [facility] HeightsWhite Blood Vtyje3080-02-64 19:02:00* Test Item Value Reference Range Interpretation Comments White Blood Count (test code = 6690-2) 7.28 4.8-10.8 [facility] Blood Iwjwl6977-30-14 19:02:00* Test Item Value Reference Range Interpretation Comments Red Blood Count (test code = 789-8) 3.88 3.6-5.1 [facility]Hemoglobin2018-07-08 19:02:00* Test Item Value Reference Range Interpretation Comments Hemoglobin (test code = 21593-8) 11.4 12.0-16.0 L [facility] HeightsHematocrit2018-07-08 19:02:00* Test Item Value Reference Range Interpretation Comments Hematocrit (test code = 4544-3) 35.0 34.2-44.1 [facility] HeightsMean Corpuscular Iqzpwi9502-24-18 19:02:00* Test Item Value Reference Range Interpretation Comments Mean Corpuscular Volume (test code = 787-2) 90.2 81-99 [facility] HeightsMean Corpuscular Vqgxjqdswf6994-28-11 19:02:00* Test Item Value Reference Range Interpretation Comments Mean Corpuscular Hemoglobin (test code = 785-6) 29.4 28-32 [facility] Heights[facility] Corpuscular Hemoglobin Concent 2018-02-27 19:02:00* Test Item Value Reference Range Interpretation Comments Mean Corpuscular Hemoglobin Concent (test code = 786-4) 32.6 31-35 [facility] HeightsRed Cell Distribution Akrzh4200-11-45 19:02:00* Test Item Value Reference Range Interpretation Comments Red Cell Distribution Width (test code = 21954-8) 15.3 11.7 -14.4 H [facility] HeightsPlatelet Ifdga1229-20-45 19:02:00* Test Item Value Reference Range Interpretation Comments Platelet Count (test code = 777-3) 221 140-360 [facility] HeightsNeutrophils (%) (Auto)2018-02-27 19:02:00 * Test Item Value Reference Range Interpretation Comments Neutrophils (%) (Auto) (test code = 51609-8) 50.2 38.7-80.0 [facility] HeightsLymphocytes (%) (Auto)2018-02-27 19:02:00 * Test Item Value Reference Range Interpretation Comments Lymphocytes (%) (Auto) (test code = 736-9) 42.0 18.0-39.1 H [facility] HeightsMonocytes (%) (Auto)2018-02-27 19:02:00* Test Item Value Reference Range Interpretation Comments Monocytes (%) (Auto) (test code = 5905-5) 5.9 4.4-11.3 [facility]osinophils (%) (Auto)2018-02-27 19:02:00 * Test Item Value Reference Range Interpretation Comments Eosinophils (%) (Auto) (test code = 713-8) 1.1 0.0-6.0 [facility] (%) (Auto)2018-02-27 19:02:00* Test Item Value Reference Range Interpretation Comments Basophils (%) (Auto) (test code = 706-2) 0.7 0.0-1.0 [facility] HeightsIM GRANULOCYTES %2018-02-27 19:02:00* Test Item Value Reference Range Interpretation Comments IM GRANULOCYTES % (test code = IM GRANULOCYTES %) 0.1 0.0- 1.0 [facility] HeightsNeutrophils # (Auto)2018-02-27 19:02:00* Test Item Value Reference Range Interpretation Comments Neutrophils # (Auto) (test code = 751-8) 3.7 2.1-6.9 [facility] HeightsLymphocytes # (Auto)2018-02-27 19:02:00* Test Item Value Reference Range Interpretation Comments Lymphocytes # (Auto) (test code = 30071-9) 3.1 1.0-3.2 [facility]Monocytes # (Auto)2018-02-27 19:02:00* Test Item Value Reference Range Interpretation Comments Monocytes # (Auto) (test code = 742-7) 0.4 0.2-0.8 [facility]Eosinophils # (Auto)2018-02-27 19:02:00* Test Item Value Reference Range Interpretation Comments Eosinophils # (Auto) (test code = 711-2) 0.1 0.0-0.4 [facility]ophils # (Auto)2018-02-27 19:02:00* Test Item Value Reference Range Interpretation Comments Basophils # (Auto) (test code = 704-7) 0.1 0.0-0.1 [facility] HeightsAbsolute Immature Granulocyte (auto 2018-02-27 19:02:00* Test Item Value Reference Range Interpretation Comments Absolute Immature Granulocyte (auto (kisha t code = Absolute Immature Granulocyte (auto) 0.01 0-0.1 [facility] HeightsThyroid Stimulating Hormone (TSH) 2017-07-06 22:31:00* Test Item Value Reference Range Interpretation Comments Thyroid Stimulating Hormone (TSH) (test code = 16287-1) 1.639 0.350-4.940 [facility] HeightsErythrocyte Sedimentation Qedk1186-18-42 22:28:00* Test Item Value Reference Range Interpretation Comments Erythrocyte Sedimentation Rate (test code = 4537-7) 36 0- 20 H [facility] HeightsUrine Opiates Rahckv5006-83-11 21:53:00* Test Item Value Reference Range Interpretation Comments Urine Opiates Screen (test code = 22709-0) NEGATIVE NEGATIVE ALL TESTS PERFORMED MANUALLY ON SIGNIFY ER TESTSeton Medical Center Harker HeightsUrine Barbiturates Bxqlpe1925-03-88 21:53:00* Test Item Value Reference Range Interpretation Comments Urine Barbiturates Screen (test code = 054475214) NEGATIVE NEGA TIVE [facility] Phencyclidine Dlxzgo3910-27-49 21:53:00* Test Item Value Reference Range Interpretation Comments Urine Phencyclidine Screen (test code = 69019-6) NEGATIVE NEGAT CANDY [facility] Heights[facility] Amphetamines Wdojpx3413-16-32 21:53:00* Test Item Value Reference Range Interpretation Comments Urine Amphetamines Screen (test code = 20091-4) NEGATIVE NEGATI VE [facility] Benzodiazepines Ewcewg3345-49-20 21:53:00* Test Item Value Reference Range Interpretation Comments Urine Benzodiazepines Screen (test code = 83021-5) POSITIVE NEG ATIVE H This test provides only a screen. Positive results should be repeated by a confi rmatory test.[facility] Cocaine Screen 2017-07-06 21:53:00* Test Item Value Reference Range Interpretation Comments Urine Cocaine Screen (test code = Urine Cocaine Screen) NEGATIVE NEGATIVE [facility] Cannabinoids Ahbrsa7444-64-78 21:53:00* Test Item Value Reference Range Interpretation Comments Urine Cannabinoids Screen (test code = 00489-4) POSITIVE NEGATI VE H THESE RESULTS ARE FOR MEDICAL TREATMENT ONLYTHIS REPORT CONTAINS UNCONFIR MED SCREENING RESULTS*POSITIVE RESULTS WILL BE CONFIRMED BY REFERENCE LAB UPON R EQUEST CUT-OFFDRUG CLASS CONCENTRATION ng/mLAmphetamines 1000Methamphetamines 1000Cocaine 300Opiate 300Phencyc lidine 25Cannabinoid 50Barbiturates 300Benzodiazepine 300Methadone 300 This test p rovides only a screen. Positive results should be repeated by a confirmatory kisha t.[facility] HeightsCT [facility] [address] [place] [address] Patient Name: MARIN CRABTREE MR #: [id number] : 1945 Age/Sex: 71/F Req #: [id number] [facility] Physician: Ordered by: CELE SHINE MD Report #: [id number] Location: Room/Bed: Procedure: [id number] CT/CT BRAIN WO Exam Date: Exam Time: REPORT STATUS: Signed EXAMINATION: He ad CT without contrast. HISTORY:Headache, hypertension. COMPARISO N:CT brain from 10/13/2016 and MRI brain from 10/14/2016. TECHNIQUE: Multidet radha axial images were obtained from the foramen magnum to the vertex without contrast. The images were reconstructed using brain and bone algorithms. Thi n section brain images were reformatted into coronal and sagittal planes. Intravenous contrast: None IMAGE QUALITY: Suboptimal evaluation due to mo tion artifacts. FINDINGS: Skull/scalp: No abnormality Parenchym a: Nonspecific few, scattered supratentorial white matter patchy hypodensity a re likely related to small vessel ischemic changes. No acute hemorrhage, mass or acute major vascular territorial infarct. Arteries: Atherosclerotic chandrakant cification in bilateral carotid siphon. Dural sinuses: No abnormal density suggestive of thrombosis. Ventricles: No hydrocephalus or displacement. Extra-axial spaces: No abnormal density. Brain volume: Normal for age. Craniocervical junction: No mass, Chiari malformation, or basilar i nvagination. Sella: Enlarged, CSF filled empty sella. Paranasal/mas toid sinuses: Imaged portions unremarkable. IMPRESSION: No acute intracra nial abnormality. Mild supratentorial white matter microvascular ischemic c hanges. Signed by: Dr. Berenice Nova M.D. on 07/06/2017 10:00 PM Dictated By: BERENICE NOVA MD 99 Transcribed By: SEBASTIAN on 07/06/172199 COPY TO: CELE SHINE MD [facility] ([facility]) [place] [address] Patient Name: MARIN CRABTREE MR #: [id number] : 1945 Age/Sex: 71/F Req #: [id number] Adm Physician: Ordered by: CELE SHINE MD Report #: [id number] Location: ER Room/Bed: Procedure: [id number] DX/CHEST SINGLE (PORTABLE) Exam Date: 07/06/17 Exam Time: 2126 REPORT STATUS: S igned CHEST SINGLE (PORTABLE), 07/06/2017 9:18 PM Technique: CHEST SINGL E (PORTABLE) Comparison: 03/06/2017 Clinical history: Headache, hypertension Findings: See Impression Impression: 1. Stable cardiomegaly and pr ominent aortic contour status post sternotomy allowing for differences in tech nique. 2. No edema or consolidation. No pleural effusion or pneumothorax. Signed by: Dr Haritha Jeter MD on 07/06/2017 10:22 PM Dictated By: RADHA JETER MD 21 T ranscribed By: SEBASTIAN on 07/06/172221 COPY TO: CELE SHINE MD CT ABDOMEN/PELVIS [place] [address] Patient Name: MARIN CRABTREE MR #: [id number] : 1945 Age/Sex: 71/F Req #: [id number] Adm Physician: Ordered by: MARTIN CASEY Report #: [id number] Location: ER Room/Bed: Procedure: [id number] CT/CT ABDOMEN/PELVIS PILI [place] m Date: 04/12/17 Exam Time: 1110 REPORT STATUS: Signed PROCEDURE: CT ABDOMEN AND PELVIS WITHOUT CONTRAST TECHNIQUE: The abdomen and pelvis were scanned utilizing a multidetector helical scanne r from the diaphragm to the lesser trochanter. No oral or intravenous contras t was administered per renal stone protocol. Coronal and sagittal multiplanar reformations were obtained. COMPARISON: 03/06/2017. INDICATIONS: L EFT SIDE ABDOMEN PAIN FINDINGS: ABSENCE OF INTRAVENOUS CONTRAST DECR EASES SENSITIVITY FOR DETECTION OF FOCAL LESIONS AND VASCULAR PATHOLOGY. LOWER THORAX: Normal. HEPATOBILIARY: No focal hepatic lesion or intrahep atic biliary ductal dilatation. The gallbladder has been removed. SPLEEN: N o splenomegaly. PANCREAS: No focal masses or ductal dilatation. ADRENALS : Large left adrenal nodule with average internal attenuation -10 Hounsfield units, unchanged and compatible with lipid rich adenoma. Similar, though smal ler right adrenal nodule. KIDNEYS/URETERS: Subcentimeter hyperattenuating lesi ons within both kidneys are too small to further characterize though likely t o represent hemorrhagic or proteinaceous cysts for example on series 3 conrado ge 54 and 68. No hydronephrosis. No calculi. PELVIC ORGANS/BLADDER: No adnexal mass. The uterus has been removed. The urinary bladder is poorly distended a nd suboptimally evaluated. PERITONEUM / RETROPERITONEUM: No ascites. No pn eumoperitoneum. LYMPH NODES: No pelvic sidewall, retroperitoneal, or mesenteri c lymphadenopathy. VESSELS: Limited evaluation without intravenous contrast . The abdominal aorta is non-aneurysmal. Atherosclerotic calcification throug hout the aortoiliac system. GI TRACT: Innumerable sigmoid and descendin g colon diverticula without wall thickening or adjacent inflammatory change. The appendix is not identified. No right lower quadrant inflammatory change. Prominence of the gastric rugal folds is likely a consequence of under disten tion. No small bowel dilatation to suggest obstruction. A few diverticula joni ng the distal ileum without adjacent inflammatory change. BONES AND SOF T TISSUES: Postsurgical changes along the low anterior abdominal wall, unchan ged. Otherwise, no focal soft tissue abnormalities. No acute osseous abnormal ities. Degenerative disc disease and degenerative facet arthropathy of the lo wer lumbar spine IMPRESSION: No acute intra-abdominal or pelvic CT a bnormalities. Large bowel diverticulosis without evidence of diverticuliti s. Atherosclerotic vascular disease. Bilateral lipid rich adrenal ad enomas. Dictated by: Brock Figueredo M.D. on 04/12/2017 at 12:10 Elect ronically approved by: Brock Figueredo M.D. on 04/12/2017 at 12:10 Di ctated By: BROCK FIGUEREDO MD 1210 COPY TO: YEN CASEY
[2020-07-16] MEDS ORDERED: ALBUTEROL SULF 0.083% NEB SOLN 3 ML NEB INH PRN (18:00)
--- NOTE | 2020-07-16 18:27 | Operative Report ---
DATE OF PROCEDURE: 07/16/2020 SURGEON: Issac Ellis MD INDICATIONS: Coronary artery disease, angina, and abnormal stress test. PROCEDURES PERFORMED: 1. Ultrasound-guided access in the right femoral artery with sheath placement. 2. Conscious sedation, 65 minutes. 3. Left heart catheterization, selective coronary angiography. 4. Selective cannulation of one artery and one venous bypass conduit. 5. Stent placement to the saphenous vein bypass graft to the left anterior descending artery. COMPLICATIONS: None. RECOMMENDATIONS: Medical therapy. DESCRIPTION OF PROCEDURE: Access was obtained in the right femoral artery using ultrasound guidance. A 6-Serbian sheath was placed. Coronary angiography demonstrated left main with only a circumflex and ramus intermedius noted. Left anterior descending artery was noted. 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 Right coronary artery, mild disease. Saphenous vein bypass to the LAD had proximal 95% stenosis. Left internal mammary artery was not used for bypass. A decision was made to intervene on the saphenous vein bypass graft. The patient received intravenous Angiomax for anticoagulation. The vein graft was cannulated using a VICTORIA 6-Serbian guiding catheter. Short Runthrough wire was advanced for support. Copious amounts of intragraft nitroglycerine and adenosine were administered. A single 2.5 x 12 mm Synergy stent was deployed at 14 atmospheres. Excellent end result. Less than 10% residual stenosis. FRANCISCA-3 flow in the graft and [place] vessels. No complications. Wire and guide sheath were removed. Sheath was secured in place for removal under manual pressure. The patient observed in the hospital overnight. MD RY ReedB/MODL /[id number]
[2020-07-16] MEDS: CARBAMAZEPINE 200 MG TAB PO SCH (18:30)
[2020-07-16] MEDS ORDERED: HYDROCODONE/APAP 5MG-325MG TAB PO PRN (18:30)
[2020-07-16] MEDS ORDERED: LABETALOL HCL 5 MG/ML 20ML VIAL IV PRN (18:30)
[2020-07-16] MEDS ORDERED: MORPHINE SULFATE INJ 4 MG/ML INJ 1ML IV PRN (18:30)
[2020-07-16] MEDS ORDERED: NITROGLYCERIN 0.4 MG SUBL SL PRN (18:30)
[2020-07-16] MEDS: NICARDIPINE 20MG/200ML PREMIX 200 ML IV PRN ×2 (18:52→21:34)
[2020-07-16] MEDS: BUDESONIDE/FORMOTEROL 160/4.5MCG INHALER INH SCH (19:00)
[2020-07-16] MEDS ORDERED: ATORVASTATIN 10 MG TAB PO SCH (21:00)
[2020-07-16] MEDS ORDERED: AMLODIPINE BESYLATE 10 MG TAB PO SCH (21:00)
[2020-07-16] MEDS ORDERED: DIAZEPAM 5 MG TAB PO SCH (21:00)
--- NOTE | 2020-07-16 21:00 | NUR ---
SHEET REMOVED AT THIS TIME, VITALS WNL, NO BLEEDING NOTED, PATIENT GIVEN PAIN MED. WILL CONTINUE TO MONITOR PATIENT.
[2020-07-16] MEDS ORDERED: ATROPINE SULFATE 0.1 MG/ML 10ML SYR ONE (21:02)
[2020-07-17] VITALS (15 sets, daily range): BP systolic 117–169; BP diastolic 52–80
[2020-07-17] MEDS: NICARDIPINE 20MG/200ML PREMIX 200 ML IV PRN (00:05)
[2020-07-17] MEDS: BUDESONIDE/FORMOTEROL 160/4.5MCG INHALER INH SCH (07:00)
--- NOTE | 2020-07-17 07:00 | NUR ---
Patient received awake and alert, AAOx4. Sheath site noted clean, dry, and intact. No s/s bleeding or bruising, no hematoma noted.
[2020-07-17] MEDS ORDERED: LINACLOTIDE 145 MCG CAPSULE PO SCH (07:30)
[2020-07-17] MEDS: CARBAMAZEPINE 200 MG TAB PO SCH (08:08)
[2020-07-17] MEDS ORDERED: LORATADINE 10 MG TAB PO SCH (09:00)
[2020-07-17] MEDS ORDERED: NON-FORMULARY MEDICATION (Linaclotide (Linzess) 290 MCG) PO SCH (09:00)
[2020-07-17] MEDS ORDERED: PANTOPRAZOLE SOD 40 MG TABEC PO SCH (09:00)
[2020-07-17] MEDS ORDERED: HYDROCHLOROTHIAZIDE 25 MG TAB PO SCH (09:00)
[2020-07-17] MEDS ORDERED: METOPROLOL SUCCINATE 50 MG TAB XL PO SCH (09:00)
[2020-07-17] MEDS ORDERED: LISINOPRIL 10 MG TAB PO SCH (09:00)
[2020-07-17] MEDS ORDERED: LISINOPRIL 20 MG TAB PO SCH (09:00)
[2020-07-17] MEDS ORDERED: CLOPIDOGREL BISULFATE 75 MG TAB PO SCH (09:00)
[2020-07-17] MEDS ORDERED: NON-FORMULARY MEDICATION (Cetirizine Hcl 10 MG) PO SCH (09:00)
[2020-07-17] MEDS ORDERED: ACETAMINOPHEN 325 MG TAB PO PRN (11:00)
[2020-07-17] MEDS ORDERED: CLONIDINE HCL 0.3MG/24 HR PATCH TOP SCH (11:00)
[2020-07-17] MEDS ORDERED: METOPROLOL SUCC50 MG PO (11:14)
--- NOTE | 2020-07-17 12:03 | NUR ---
EDUCATED ABOUT IMM, SIGNED, FILED IN CHART, WITH COPY LEFT WITH FAMILY AT BEDSIDE.
--- NOTE | 2020-07-17 12:30 | NUR ---
Patient discharge home, AAOx4, resp even and unlabored, lung sounds clear. R groin site clean, dry, and intact. No s/s bruising or bleeding, site soft. Pulses noted 2/2 bilaterally. IV d/c'd, tip intact. Discharge paperwork and prescriptions given to patient, no questions noted at this time. Left to private auto via wheelchair.
== END 2020-07-17 12:30 | disposition home or self-care (01) | DRG 247 ==
LOC: CATH LAB 10:42 → ICU 17:22
PROVIDERS: ADMIT Internal Medicine Interventional Cardiology; ATTEND Internal Medicine Interventional Cardiology
PROC: 027034Z Dilation of Coronary Artery, One Artery with Drug-eluting Intraluminal Device, Percutaneous Approach (ICD-10-PCS; principal; 2020-07-16)
PROC: B2121ZZ Fluoroscopy of Single Coronary Artery Bypass Graft using Low Osmolar Contrast (ICD-10-PCS; 2020-07-16)
PROC: B2111ZZ Fluoroscopy of Multiple Coronary Arteries using Low Osmolar Contrast (ICD-10-PCS; 2020-07-16)
DX: I25.708 Atherosclerosis of coronary artery bypass graft(s), unspecified, with other forms of angina pectoris (principal); I48.0 Paroxysmal atrial fibrillation; I50.9 Heart failure, unspecified; J44.9 Chronic obstructive pulmonary disease, unspecified; I11.0 Hypertensive heart disease with heart failure; R00.1 Bradycardia, unspecified; Z95.1 Presence of aortocoronary bypass graft; Z20.828 Contact with and (suspected) exposure to other viral communicable diseases
CPT/HCPCS: 36415; 80053; 85025; 85347; 92937; 99152; 99153; C1769; C1874; C1887; J0153; J0583; J2001; J2250; J2270; J3010; J7030; Q9967; U0002

== ENCOUNTER 2021-11-08 20:02 | Inpatient (IN) | payer MEDICARE ==
[~2021-11-08] VITALS: Ht 165.1 cm; Wt 84.4 kg
[~2021-11-08 20:02] MED LIST changes: +METOPROLOL SUCC50 MG PO
[2021-11-08 21:26] LABS: BASOPHILS # (AUTO) 0.1 (0.0-0.1); BASOPHILS % 0.9 % (0.0-1.0); EOSINOPHILS % 0.6 % (0.0-6.0); HEMATOCRIT 31.5 % (34.2-44.1); HEMOGLOBIN 10.4 g/dL (12.0-16.0); LYMPHOCYTES # (AUTO) 1.6 (1.0-3.2); LYMPHOCYTES % 29.1 % (18.0-39.1); MEAN CORPUSCULAR HEMOGLOBIN 32.4 pg (28-32); MEAN CORPUSCULAR VOLUME 98.1 fL (81-99); MONOCYTES # (AUTO) 0.4 (0.2-0.8); MONOCYTES % 7.6 % (4.4-11.3); NEUTROPHILS # (AUTO) 3.3 (2.1-6.9); NEUTROPHILS % 61.2 % (38.7-80.0); PLATELET COUNT 223 x10e3/uL (140-360); RED BLOOD COUNT 3.21 x10e6/uL (3.6-5.1); RED CELL DISTRIBUTION WIDTH 16.4 % (11.7-14.4)
[2021-11-08 21:48] LABS: ALBUMIN 3.4 g/dL (3.5-5.0); ALBUMIN/GLOBULIN RATIO 0.9 (0.8-2.0); ANION GAP 13.6 mmol/L (8-16); CALCIUM 8.4 mg/dL (8.4-10.2); CREATININE, SERUM 1.72 mg/dL (0.57-1.11); POTASSIUM 3.6 mmol/L (3.5-5.1)
[2021-11-08 21:58] LABS: CREATINE KINASE MB 1.4 ng/mL (0-5.0)
[2021-11-08] MEDS ORDERED: HYDRALAZINE HCL 20 MG/ML VIAL IV STA (22:10)
[2021-11-08] MEDS ORDERED: LABETALOL HCL 20 ML ONE (22:20)
[2021-11-08] MEDS ORDERED: FUROSEMIDE INJ 10 MG/ML 4 ML VIAL IV STA (22:33)
[2021-11-09] VITALS (42 sets, daily range): BP systolic 112–210; BP diastolic 79–152
[2021-11-09] MEDS: LABETALOL HCL 5 MG/ML 20ML VIAL IV PRN ×2 (00:36→08:03)
[2021-11-09 05:30] LABS: BASOPHILS # (AUTO) 0.1 (0.0-0.1); EOSINOPHILS % 0.5 % (0.0-6.0); HEMATOCRIT 30.6 % (34.2-44.1); HEMOGLOBIN 10.2 g/dL (12.0-16.0); LYMPHOCYTES # (AUTO) 1.9 (1.0-3.2); LYMPHOCYTES % 30.3 % (18.0-39.1); MEAN CORPUSCULAR HEMOGLOBIN 32.7 pg (28-32); MEAN CORPUSCULAR HGB CONC 33.3 g/dL (31-35); MEAN CORPUSCULAR VOLUME 98.1 fL (81-99); MONOCYTES # (AUTO) 0.5 (0.2-0.8); MONOCYTES % 8.8 % (4.4-11.3); NEUTROPHILS # (AUTO) 3.6 (2.1-6.9); NEUTROPHILS % 58.4 % (38.7-80.0); PLATELET COUNT 209 x10e3/uL (140-360); RED BLOOD COUNT 3.12 x10e6/uL (3.6-5.1); RED CELL DISTRIBUTION WIDTH 16.3 % (11.7-14.4)
[2021-11-09 05:59] LABS: ALBUMIN 3.2 g/dL (3.5-5.0); ALBUMIN/GLOBULIN RATIO 0.9 (0.8-2.0); ANION GAP 13.5 mmol/L (8-16); CALCIUM 8.8 mg/dL (8.4-10.2); CREATININE, SERUM 1.63 mg/dL (0.57-1.11); POTASSIUM 3.5 mmol/L (3.5-5.1)
[2021-11-09 06:19] LABS: CREATINE KINASE MB 1.4 ng/mL (0-5.0)
[2021-11-09] MEDS: SODIUM CHLORIDE FLUSH 10 ML SYR INJ PRN ×3 (07:52→09:43)
[2021-11-09] MEDS ORDERED: TYLENOL325 MG PO (09:00)
[2021-11-09] MEDS ORDERED: LISINOPRIL 20 MG TAB PO SCH (09:00)
[2021-11-09] MEDS ORDERED: METOPROLOL SUCCINATE 50 MG TAB XL PO SCH (09:00)
[2021-11-09] MEDS ORDERED: HYDROCHLOROTHIAZIDE 25 MG TAB PO SCH (09:00)
[2021-11-09] MEDS ORDERED: ZOLPIDEM TARTRAT5 MG PO (09:02)
[2021-11-09] MEDS ORDERED: ASPIRIN EC81 MG PO (09:07)
[2021-11-09] MEDS ORDERED: [UNRECOGNIZED DRUG - OTHER] PO (09:07)
[2021-11-09] MEDS ORDERED: OLMESARTAN PO (09:10)
[2021-11-09] MEDS ORDERED: HYDRALAZINE HCL50 MG PO (09:12)
[2021-11-09] MEDS ORDERED: XARELTO20 MG PO (09:13)
[2021-11-09] MEDS ORDERED: HYDRALAZINE HCL 20 MG/ML VIAL IV PRN (09:15)
[2021-11-09] MEDS ORDERED: LEVALBUTEROL HCL SOLN NEBU 1.25 MG/3 ML NEB INH PRN (09:15)
[2021-11-09] MEDS ORDERED: BENZONATATE 100 MG CAP PO PRN (09:15)
[2021-11-09] MEDS ORDERED: CLOPIDOGREL BISULFATE 75 MG TAB PO ONE (09:15)
[2021-11-09] MEDS ORDERED: CETIRIZINE HCL10 MG PO (09:17)
[2021-11-09] MEDS: CARBAMAZEPINE 200 MG TAB PO SCH ×2 (09:23→18:05)
[2021-11-09] MEDS: ASPIRIN 325 MG TAB PO SCH (09:23)
[2021-11-09] MEDS: FUROSEMIDE INJ 10 MG/ML 4 ML VIAL IV SCH ×3 (09:42→21:29)
[2021-11-09] MEDS: ACETAMINOPHEN 325 MG TAB PO PRN (10:10)
[2021-11-09] MEDS: BUDESONIDE/FORMOTEROL 160/4.5MCG INHALER INH SCH ×2 (10:36→19:00)
[2021-11-09] MEDS: PANTOPRAZOLE SOD 40 MG TABEC PO SCH (11:27)
[2021-11-09] MEDS: METOPROLOL TARTRATE 50 MG TAB PO SCH ×3 (12:54→23:15)
[2021-11-09] MEDS ORDERED: COLACE100 MG PO (12:59)
[2021-11-09] MEDS ORDERED: CLONIDINE HCL0.3 MG TD (13:03)
[2021-11-09] MEDS: IPRATROPIUM BROMIDE 0.02% 2.5 ML NEB NEB SCH ×2 (13:27→19:50)
[2021-11-09] MEDS: LEVALBUTEROL HCL SOLN NEBU 1.25 MG/3 ML NEB INH SCH ×2 (13:27→19:50)
[2021-11-09] MEDS: MAALOX/LIDOCAINE/BENADRYL/NYST 30 ML BTL PO PRN (13:35)
[2021-11-09] MEDS: HYDRALAZINE HCL 25 MG TAB PO SCH ×2 (14:27→21:29)
[2021-11-09] MEDS: POTASSIUM CHLORIDE 10MEQ EA PO SCH ×2 (15:04→21:29)
[2021-11-09 15:33] LABS: CREATINE KINASE MB 1.3 ng/mL (0-5.0)
[2021-11-09] MEDS ORDERED: FAMOTIDINE 20 MG TAB PO SCH (16:30)
[2021-11-09] MEDS ORDERED: BUDESONIDE/FORMOTEROL 160/4.5MCG INHALER INH SCH (17:00)
[2021-11-09] MEDS: ENOXAPARIN 30 MG/0.3 ML SYR SC SCH (18:05)
[2021-11-09] MEDS: GUAIFENESIN 600 MG TAB PO SCH (18:05)
[2021-11-09] MEDS ORDERED: AMLODIPINE BESYLATE 10 MG TAB PO SCH (21:00)
[2021-11-09] MEDS: ZOLPIDEM TARTRATE 5 MG TAB PO SCH (21:29)
[2021-11-09] MEDS: ATORVASTATIN 20 MG TAB PO SCH (21:29)
[2021-11-10] VITALS (41 sets, daily range): BP systolic 107–180; BP diastolic 66–135
[2021-11-10] MEDS: LEVALBUTEROL HCL SOLN NEBU 1.25 MG/3 ML NEB INH SCH ×4 (02:00→19:22)
[2021-11-10] MEDS: IPRATROPIUM BROMIDE 0.02% 2.5 ML NEB NEB SCH ×4 (02:00→19:22)
[2021-11-10 04:52] LABS: BASOPHILS % 0.8 % (0.0-1.0); EOSINOPHILS # (AUTO) 0.1 (0.0-0.4); EOSINOPHILS % 1.3 % (0.0-6.0); HEMATOCRIT 30.5 % (34.2-44.1); HEMOGLOBIN 10.2 g/dL (12.0-16.0); LYMPHOCYTES # (AUTO) 1.6 (1.0-3.2); LYMPHOCYTES % 29.1 % (18.0-39.1); MEAN CORPUSCULAR HEMOGLOBIN 32.4 pg (28-32); MEAN CORPUSCULAR HGB CONC 33.4 g/dL (31-35); MEAN CORPUSCULAR VOLUME 96.8 fL (81-99); MONOCYTES # (AUTO) 0.5 (0.2-0.8); MONOCYTES % 8.8 % (4.4-11.3); NEUTROPHILS # (AUTO) 3.2 (2.1-6.9); NEUTROPHILS % 59.4 % (38.7-80.0); PLATELET COUNT 197 x10e3/uL (140-360); RED BLOOD COUNT 3.15 x10e6/uL (3.6-5.1); RED CELL DISTRIBUTION WIDTH 16.5 % (11.7-14.4)
[2021-11-10 05:11] LABS: ANION GAP 14.3 mmol/L (8-16); CALCIUM 8.3 mg/dL (8.4-10.2); CREATININE, SERUM 1.55 mg/dL (0.57-1.11); POTASSIUM 3.3 mmol/L (3.5-5.1)
[2021-11-10] MEDS: FUROSEMIDE INJ 10 MG/ML 4 ML VIAL IV SCH ×3 (05:45→21:56)
[2021-11-10 06:17] LABS: CHOL/HDL RATIO 3.5 (3.0-3.6)
[2021-11-10] MEDS: POTASSIUM CHLORIDE 10MEQ EA PO SCH ×3 (06:25→21:56)
[2021-11-10] MEDS: METOPROLOL TARTRATE 50 MG TAB PO SCH ×4 (06:25→23:35)
[2021-11-10 06:37] LABS: THYROID STIMULATING HORMONE 1.241 uIU/mL (0.350-4.940)
[2021-11-10] MEDS: BUDESONIDE/FORMOTEROL 160/4.5MCG INHALER INH SCH ×3 (07:00→19:13)
[2021-11-10] MEDS: HYDRALAZINE HCL 25 MG TAB PO SCH ×3 (07:48→20:52)
[2021-11-10] MEDS: PANTOPRAZOLE SOD 40 MG TABEC PO SCH (07:48)
[2021-11-10] MEDS: CARBAMAZEPINE 200 MG TAB PO SCH ×2 (07:58→17:00)
[2021-11-10] MEDS: ASPIRIN 325 MG TAB PO SCH (08:55)
[2021-11-10] MEDS: CLOPIDOGREL BISULFATE 75 MG TAB PO SCH (08:56)
[2021-11-10] MEDS: GUAIFENESIN 600 MG TAB PO SCH ×2 (08:56→17:00)
[2021-11-10] MEDS ORDERED: CLONIDINE HCL 0.3MG/24 HR PATCH TOP SCH (10:00)
[2021-11-10] MEDS: LOSARTAN POTASSIUM 100 MG TAB PO SCH (10:23)
[2021-11-10] MEDS: ENOXAPARIN 30 MG/0.3 ML SYR SC SCH (17:00)
[2021-11-10] MEDS: ZOLPIDEM TARTRATE 5 MG TAB PO SCH (20:52)
[2021-11-10] MEDS: ATORVASTATIN 20 MG TAB PO SCH (20:52)
[2021-11-11] VITALS (28 sets, daily range): BP systolic 119–167; BP diastolic 70–121
[2021-11-11] MEDS: IPRATROPIUM BROMIDE 0.02% 2.5 ML NEB NEB SCH ×4 (01:50→18:45)
[2021-11-11] MEDS: LEVALBUTEROL HCL SOLN NEBU 1.25 MG/3 ML NEB INH SCH ×4 (01:50→18:45)
[2021-11-11 04:58] LABS: BASOPHILS # (AUTO) 0.1 (0.0-0.1); BASOPHILS % 0.8 % (0.0-1.0); EOSINOPHILS # (AUTO) 0.1 (0.0-0.4); EOSINOPHILS % 1.1 % (0.0-6.0); HEMOGLOBIN 10.5 g/dL (12.0-16.0); LYMPHOCYTES # (AUTO) 1.9 (1.0-3.2); LYMPHOCYTES % 29.3 % (18.0-39.1); MEAN CORPUSCULAR HEMOGLOBIN 32.2 pg (28-32); MEAN CORPUSCULAR HGB CONC 33.9 g/dL (31-35); MEAN CORPUSCULAR VOLUME 95.1 fL (81-99); MONOCYTES # (AUTO) 0.7 (0.2-0.8); MONOCYTES % 10.3 % (4.4-11.3); NEUTROPHILS # (AUTO) 3.8 (2.1-6.9); PLATELET COUNT 225 x10e3/uL (140-360); RED BLOOD COUNT 3.26 x10e6/uL (3.6-5.1); RED CELL DISTRIBUTION WIDTH 16.1 % (11.7-14.4)
[2021-11-11 05:23] LABS: ALBUMIN 3.2 g/dL (3.5-5.0); ALBUMIN/GLOBULIN RATIO 0.9 (0.8-2.0); ANION GAP 16.3 mmol/L (8-16); CALCIUM 8.9 mg/dL (8.4-10.2); CREATININE, SERUM 1.74 mg/dL (0.57-1.11); POTASSIUM 3.3 mmol/L (3.5-5.1)
[2021-11-11] MEDS: METOPROLOL TARTRATE 50 MG TAB PO SCH (05:36)
[2021-11-11] MEDS: FUROSEMIDE INJ 10 MG/ML 4 ML VIAL IV SCH (05:36)
[2021-11-11] MEDS: POTASSIUM CHLORIDE 10MEQ EA PO SCH ×3 (05:36→21:16)
[2021-11-11] MEDS: BUDESONIDE/FORMOTEROL 160/4.5MCG INHALER INH SCH ×2 (07:16→18:45)
[2021-11-11] MEDS: PANTOPRAZOLE SOD 40 MG TABEC PO SCH (07:36)
[2021-11-11] MEDS: GUAIFENESIN 600 MG TAB PO SCH ×2 (08:00→17:00)
[2021-11-11] MEDS: LOSARTAN POTASSIUM 100 MG TAB PO SCH (08:00)
[2021-11-11] MEDS: CLOPIDOGREL BISULFATE 75 MG TAB PO SCH (08:00)
[2021-11-11] MEDS: ASPIRIN 325 MG TAB PO SCH (08:00)
[2021-11-11] MEDS: CARBAMAZEPINE 200 MG TAB PO SCH ×2 (08:00→17:00)
[2021-11-11] MEDS: HYDRALAZINE HCL 25 MG TAB PO SCH (08:00)
[2021-11-11 08:34] LABS: LYMPHOCYTES % (MANUAL) 32 % (19-48); MONOCYTES % (MANUAL) 11 % (3.4-9.0); NEUTROPHILS % (MANUAL) 57 % (40-74); PLATELET ESTIMATE ADEQUATE; PLATELET MORPHOLOGY COMMENT NORMAL; RBC MORPHOLOGY COMMENT NORMAL
[2021-11-11] MEDS ORDERED: POTASSIUM CHLORIDE 10MEQ EA PO ONE (10:00)
[2021-11-11] MEDS: HYDRALAZINE HCL 100 MG TABLET PO SCH ×3 (10:00→20:11)
[2021-11-11] MEDS: RIVAROXABAN 20 MG TABLET PO SCH ×3 (10:30→19:27)
[2021-11-11] MEDS ORDERED: MAGNESIUM HYDROXIDE 30 ML UDC PO PRN (12:45)
[2021-11-11] MEDS ORDERED: METOPROLOL TARTRATE 50 MG TAB PO SCH (17:00)
[2021-11-11] MEDS: CARVEDILOL 12.5 MG TAB PO SCH (17:50)
[2021-11-11] MEDS: ATORVASTATIN 20 MG TAB PO SCH (20:11)
[2021-11-11] MEDS: ZOLPIDEM TARTRATE 5 MG TAB PO SCH (20:11)
[2021-11-12] VITALS (13 sets, daily range): BP systolic 103–162; BP diastolic 64–103
[2021-11-12] MEDS: LEVALBUTEROL HCL SOLN NEBU 1.25 MG/3 ML NEB INH SCH ×4 (00:30→19:30)
[2021-11-12] MEDS: IPRATROPIUM BROMIDE 0.02% 2.5 ML NEB NEB SCH ×4 (00:30→19:30)
[2021-11-12 05:04] LABS: BASOPHILS % 0.6 % (0.0-1.0); EOSINOPHILS # (AUTO) 0.1 (0.0-0.4); EOSINOPHILS % 1.1 % (0.0-6.0); HEMATOCRIT 33.2 % (34.2-44.1); HEMOGLOBIN 10.9 g/dL (12.0-16.0); LYMPHOCYTES # (AUTO) 1.9 (1.0-3.2); LYMPHOCYTES % 30.7 % (18.0-39.1); MEAN CORPUSCULAR HGB CONC 32.8 g/dL (31-35); MEAN CORPUSCULAR VOLUME 97.4 fL (81-99); MONOCYTES # (AUTO) 0.7 (0.2-0.8); MONOCYTES % 10.8 % (4.4-11.3); NEUTROPHILS # (AUTO) 3.5 (2.1-6.9); NEUTROPHILS % 56.5 % (38.7-80.0); PLATELET COUNT 206 x10e3/uL (140-360); RED BLOOD COUNT 3.41 x10e6/uL (3.6-5.1); RED CELL DISTRIBUTION WIDTH 16.3 % (11.7-14.4)
[2021-11-12 05:19] LABS: ANION GAP 14.9 mmol/L (8-16); CALCIUM 8.6 mg/dL (8.4-10.2); CREATININE, SERUM 1.62 mg/dL (0.57-1.11); POTASSIUM 3.9 mmol/L (3.5-5.1)
[2021-11-12 05:37] LABS: MAGNESIUM 1.6 MG/DL (1.3-2.1); PHOSPHORUS 2.8 MG/DL (2.3-4.7)
[2021-11-12 05:57] LABS: THYROID STIMULATING HORMONE 2.407 uIU/mL (0.350-4.940)
[2021-11-12] MEDS: POTASSIUM CHLORIDE 10MEQ EA PO SCH ×3 (06:00→22:00)
[2021-11-12] MEDS: BUDESONIDE/FORMOTEROL 160/4.5MCG INHALER INH SCH ×2 (06:42→20:20)
[2021-11-12] MEDS: PANTOPRAZOLE SOD 40 MG TABEC PO SCH (07:30)
[2021-11-12] MEDS: LINZESS 290 MCG PO SCH (07:30)
[2021-11-12] MEDS: FUROSEMIDE INJ 10 MG/ML 4 ML VIAL IV SCH ×2 (08:00→12:46)
[2021-11-12] MEDS ORDERED: HEPARIN SOD (PORCINE) 1000 UNIT/ML 30ML ONE (08:39)
[2021-11-12] MEDS ORDERED: MIDAZOLAM HCL 2 MG/2 ML VIAL ONE (08:39)
[2021-11-12] MEDS ORDERED: FENTANYL CITRATE/PF 100MCG/2 ML INJ ONE (08:40)
[2021-11-12] MEDS ORDERED: IOPAMIDOL 370 MG/ML 200 ML INFUS..BTL INJ ONE (08:40)
[2021-11-12] MEDS ORDERED: NITROGLYCERIN/D5W 200 MCG/ML 250 ML ONE (08:40)
[2021-11-12] MEDS ORDERED: HEPARIN SOD/SOD CHLORIDE 2,000 ML ONE (08:40)
[2021-11-12] MEDS ORDERED: LIDOCAINE HCL 2% LOCAL 20 ML VIAL ONE (08:40)
[2021-11-12] MEDS ORDERED: SODIUM CHLORIDE 0.9% 1000ML 1,000 ML ONE (08:40)
[2021-11-12] MEDS: CARBAMAZEPINE 200 MG TAB PO SCH ×2 (10:36→16:46)
[2021-11-12] MEDS: HYDRALAZINE HCL 100 MG TABLET PO SCH ×3 (10:36→21:00)
[2021-11-12] MEDS: LOSARTAN POTASSIUM 100 MG TAB PO SCH (10:36)
[2021-11-12] MEDS: AMIODARONE HCL 200 MG TAB PO SCH ×2 (10:36→22:05)
[2021-11-12] MEDS: CARVEDILOL 12.5 MG TAB PO SCH ×2 (10:36→16:46)
[2021-11-12] MEDS: GUAIFENESIN 600 MG TAB PO SCH ×2 (10:36→16:46)
[2021-11-12] MEDS: CLOPIDOGREL BISULFATE 75 MG TAB PO SCH (10:36)
[2021-11-12] MEDS: ONDANSETRON HCL INJ 2MG/ML 2ML 2 MG/ML VIAL IV PRN (20:30)
[2021-11-12] MEDS: RIVAROXABAN 20 MG TABLET PO SCH (22:05)
[2021-11-12] MEDS: ATORVASTATIN 20 MG TAB PO SCH (22:05)
[2021-11-12] MEDS: ZOLPIDEM TARTRATE 5 MG TAB PO SCH (22:05)
[2021-11-13] VITALS (24 sets, daily range): BP systolic 94–152; BP diastolic 59–102
[2021-11-13] MEDS: LEVALBUTEROL HCL SOLN NEBU 1.25 MG/3 ML NEB INH SCH ×4 (00:50→19:10)
[2021-11-13] MEDS: IPRATROPIUM BROMIDE 0.02% 2.5 ML NEB NEB SCH ×4 (00:50→19:10)
[2021-11-13] MEDS: POTASSIUM CHLORIDE 10MEQ EA PO SCH ×3 (06:00→21:31)
[2021-11-13] MEDS: LINZESS 290 MCG PO SCH (07:30)
[2021-11-13] MEDS: BUDESONIDE/FORMOTEROL 160/4.5MCG INHALER INH SCH ×2 (07:30→19:10)
[2021-11-13] MEDS: AMIODARONE HCL 200 MG TAB PO SCH ×2 (10:40→21:31)
[2021-11-13] MEDS: PANTOPRAZOLE SOD 40 MG TABEC PO SCH (10:40)
[2021-11-13] MEDS: FUROSEMIDE INJ 10 MG/ML 4 ML VIAL IV SCH ×2 (10:40→13:08)
[2021-11-13] MEDS: CARVEDILOL 12.5 MG TAB PO SCH ×2 (10:41→17:58)
[2021-11-13] MEDS: GUAIFENESIN 600 MG TAB PO SCH ×2 (10:42→17:58)
[2021-11-13] MEDS: LOSARTAN POTASSIUM 100 MG TAB PO SCH (10:42)
[2021-11-13] MEDS: HYDRALAZINE HCL 100 MG TABLET PO SCH ×3 (10:42→21:31)
[2021-11-13] MEDS: CLOPIDOGREL BISULFATE 75 MG TAB PO SCH (10:42)
[2021-11-13] MEDS: CARBAMAZEPINE 200 MG TAB PO SCH ×2 (10:42→17:58)
[2021-11-13] MEDS: RIVAROXABAN 20 MG TABLET PO SCH (21:31)
[2021-11-13] MEDS: ATORVASTATIN 20 MG TAB PO SCH (21:31)
[2021-11-13] MEDS: ZOLPIDEM TARTRATE 5 MG TAB PO SCH (21:31)
[2021-11-14] VITALS (33 sets, daily range): BP systolic 86–167; BP diastolic 62–137
[2021-11-14] MEDS: IPRATROPIUM BROMIDE 0.02% 2.5 ML NEB NEB SCH ×4 (00:10→19:00)
[2021-11-14] MEDS: LEVALBUTEROL HCL SOLN NEBU 1.25 MG/3 ML NEB INH SCH ×4 (00:10→19:00)
[2021-11-14] MEDS: ACETAMINOPHEN 325 MG TAB PO PRN ×5 (03:23→17:39)
[2021-11-14] MEDS: POTASSIUM CHLORIDE 10MEQ EA PO SCH ×3 (06:00→21:15)
[2021-11-14] MEDS: BUDESONIDE/FORMOTEROL 160/4.5MCG INHALER INH SCH ×2 (07:00→19:25)
[2021-11-14] MEDS: LINZESS 290 MCG PO SCH (07:30)
[2021-11-14] MEDS: PANTOPRAZOLE SOD 40 MG TABEC PO SCH (07:30)
[2021-11-14] MEDS: FUROSEMIDE INJ 10 MG/ML 4 ML VIAL IV SCH (08:00)
[2021-11-14] MEDS: AMIODARONE HCL 200 MG TAB PO SCH ×2 (08:34→21:09)
[2021-11-14] MEDS: CARVEDILOL 12.5 MG TAB PO SCH ×2 (08:34→17:38)
[2021-11-14] MEDS: LOSARTAN POTASSIUM 100 MG TAB PO SCH (08:34)
[2021-11-14] MEDS: CLOPIDOGREL BISULFATE 75 MG TAB PO SCH (08:35)
[2021-11-14] MEDS: GUAIFENESIN 600 MG TAB PO SCH ×3 (08:35→10:36)
[2021-11-14] MEDS: CARBAMAZEPINE 200 MG TAB PO SCH ×2 (08:35→17:00)
[2021-11-14] MEDS: HYDRALAZINE HCL 100 MG TABLET PO SCH ×3 (09:00→21:09)
[2021-11-14] MEDS: MAALOX/LIDOCAINE/BENADRYL/NYST 30 ML BTL PO PRN (09:07)
[2021-11-14] MEDS: FUROSEMIDE 20 MG TAB PO SCH (17:38)
[2021-11-14] MEDS ORDERED: FUROSEMIDE 40 MG TAB PO SCH (18:00)
[2021-11-14] MEDS: ATORVASTATIN 20 MG TAB PO SCH (21:09)
[2021-11-14] MEDS: RIVAROXABAN 20 MG TABLET PO SCH (21:14)
[2021-11-14] MEDS: ZOLPIDEM TARTRATE 5 MG TAB PO SCH (21:14)
[2021-11-15] VITALS (14 sets, daily range): BP systolic 97–154; BP diastolic 64–101
[2021-11-15] MEDS: LEVALBUTEROL HCL SOLN NEBU 1.25 MG/3 ML NEB INH SCH (01:00)
[2021-11-15] MEDS: IPRATROPIUM BROMIDE 0.02% 2.5 ML NEB NEB SCH (01:00)
[2021-11-15] MEDS: POTASSIUM CHLORIDE 10MEQ EA PO SCH ×3 (05:50→22:52)
[2021-11-15] MEDS: FUROSEMIDE 20 MG TAB PO SCH ×2 (05:50→16:26)
[2021-11-15] MEDS: ACETAMINOPHEN 325 MG TAB PO PRN (05:51)
[2021-11-15] MEDS ORDERED: IPRATROPIUM BROMIDE 0.02% 2.5 ML NEB NEB PRN (06:15)
[2021-11-15] MEDS: LINZESS 290 MCG PO SCH (07:30)
[2021-11-15] MEDS: GUAIFENESIN 600 MG TAB PO SCH ×2 (08:04→16:26)
[2021-11-15] MEDS: AMIODARONE HCL 200 MG TAB PO SCH ×2 (08:04→21:10)
[2021-11-15] MEDS: CARBAMAZEPINE 200 MG TAB PO SCH ×2 (08:04→16:26)
[2021-11-15] MEDS: PANTOPRAZOLE SOD 40 MG TABEC PO SCH (08:04)
[2021-11-15] MEDS: CLOPIDOGREL BISULFATE 75 MG TAB PO SCH (08:04)
[2021-11-15] MEDS: CARVEDILOL 12.5 MG TAB PO SCH ×2 (08:05→16:26)
[2021-11-15] MEDS: HYDRALAZINE HCL 100 MG TABLET PO SCH ×3 (09:00→21:10)
[2021-11-15] MEDS: LOSARTAN POTASSIUM 100 MG TAB PO SCH (09:00)
[2021-11-15] MEDS: BUDESONIDE/FORMOTEROL 160/4.5MCG INHALER INH SCH ×2 (10:30→19:35)
[2021-11-15] MEDS: RIVAROXABAN 20 MG TABLET PO SCH (21:10)
[2021-11-15] MEDS: ZOLPIDEM TARTRATE 5 MG TAB PO SCH (21:10)
[2021-11-15] MEDS: ATORVASTATIN 20 MG TAB PO SCH (21:10)
[2021-11-16 03:00] VITALS: BP 113/99
[2021-11-16] MEDS: FUROSEMIDE 20 MG TAB PO SCH (06:15)
[2021-11-16] MEDS: POTASSIUM CHLORIDE 10MEQ EA PO SCH (06:15)
[2021-11-16] MEDS: ACETAMINOPHEN 325 MG TAB PO PRN (06:19)
[2021-11-16 07:00] VITALS: BP 146/106
[2021-11-16 07:14] VITALS: BP 146/106
[2021-11-16] MEDS: LINZESS 290 MCG PO SCH (07:30)
[2021-11-16] MEDS: CLOPIDOGREL BISULFATE 75 MG TAB PO SCH (08:13)
[2021-11-16] MEDS: CARBAMAZEPINE 200 MG TAB PO SCH (08:13)
[2021-11-16] MEDS: AMIODARONE HCL 200 MG TAB PO SCH (08:13)
[2021-11-16] MEDS: PANTOPRAZOLE SOD 40 MG TABEC PO SCH (08:13)
[2021-11-16] MEDS: HYDRALAZINE HCL 100 MG TABLET PO SCH (08:13)
[2021-11-16] MEDS: GUAIFENESIN 600 MG TAB PO SCH (08:13)
[2021-11-16] MEDS: LOSARTAN POTASSIUM 100 MG TAB PO SCH (08:13)
[2021-11-16] MEDS: CARVEDILOL 12.5 MG TAB PO SCH (08:13)
[2021-11-16] MEDS ORDERED: SOD PHOSPHATE/SOD BIPHOSPHATE ENEMA 132 ML BTL PR ONE (10:00)
[2021-11-16] MEDS: ONDANSETRON HCL INJ 2MG/ML 2ML 2 MG/ML VIAL IV PRN (10:29)
[2021-11-16] MEDS ORDERED: FUROSEMIDE40 MG PO (10:35)
[2021-11-16] MEDS ORDERED: AMIODARONE HCL200 MG PO (10:35)
[2021-11-16] MEDS ORDERED: K DUR10 MEQ PO (10:44)
[2021-11-16] MEDS ORDERED: COREG12.5 MG PO (10:44)
[2021-11-16 11:45] VITALS: BP 112/85
== END 2021-11-16 12:17 | disposition home health service (06) | DRG 280 ==
LOC: ER 20:11 → ERHOLD 23:01 → ICU 11-09 01:10 → ACU 11-11 11:50 → ICU 11-11 11:54
PROVIDERS: ADMIT Internal Medicine; ATTEND Internal Medicine
PROC: 5A09357 Assistance with Respiratory Ventilation, Less than 24 Consecutive Hours, Continuous Positive Airway Pressure (ICD-10-PCS; principal; 2021-11-08)
DX: I13.0 Hypertensive heart and chronic kidney disease with heart failure and stage 1 through stage 4 chronic kidney disease, or unspecified chronic kidney disease (principal); I50.23 Acute on chronic systolic (congestive) heart failure; I21.4 Non-ST elevation (NSTEMI) myocardial infarction; J96.01 Acute respiratory failure with hypoxia; I48.92 Unspecified atrial flutter; I48.4 Atypical atrial flutter; I43 Cardiomyopathy in diseases classified elsewhere; I25.10 Atherosclerotic heart disease of native coronary artery without angina pectoris; Z95.1 Presence of aortocoronary bypass graft; N18.30 Chronic kidney disease, stage 3 unspecified; D50.0 Iron deficiency anemia secondary to blood loss (chronic); I49.5 Sick sinus syndrome; Z95.810 Presence of automatic (implantable) cardiac defibrillator; F17.200 Nicotine dependence, unspecified, uncomplicated; J44.9 Chronic obstructive pulmonary disease, unspecified; Z79.01 Long term (current) use of anticoagulants; R53.81 Other malaise; Z20.822 Contact with and (suspected) exposure to COVID-19; Z88.5 Allergy status to narcotic agent; Z79.899 Other long term (current) drug therapy; M19.90 Unspecified osteoarthritis, unspecified site
CPT/HCPCS: 36415; 71045; 80048; 80053; 80061; 80156; 82550; 82553; 82607; 82746; 83036; 83540; 83735; 83880; 84100; 84443; 84466; 84484; 85025; 93005; 93306; 93459; 94640; 94660; 94664; 94799; 96360; 97139; 99152; 99153; 99284; C1760; C1769; C1887; J0360; J1644; J1650; J1940; J2001; J2250; J2405; J3010; J7030; Q9967; U0002